=== PATIENT | female | born 1935 | race Caucasian/White ===

== ENCOUNTER 2017-10-08 09:42 | Outpatient (RCR) | payer MEDICARE, SELFPAY ==
[2017-10-08 12:23] LABS: International Normalized Ratio 2.2; Prothrombin Time (Protime)PT. 23.5 SECONDS (11.7-14.9)
== END 2017-10-08 10:00 | disposition home or self-care (01) ==
LOC: MTLAB 09:42
PROVIDERS: Family Provider Family Medicine; PCP Family Medicine; Visit Provider Family Medicine
DX: I26.99 Other pulmonary embolism without acute cor pulmonale (principal)
CPT/HCPCS: 36415; 85610

== ENCOUNTER → 2017-11-06 14:53 | Outpatient (CLI) | payer MEDICARE, SELFPAY ==
--- NOTE | 2017-11-06 14:58 | HPBD_ITS ---
STUDY: DUAL ENERGY X-RAY ABSORPTIOMETRY / DXA REASON FOR EXAM: Female, 82 years old. Early menopause. Loss of height. TECHNIQUE: Bone Mineral Density (BMD) measurements of lumbar spine and bilateral hips were obtained. COMPARISON: None. FINDINGS: Lumbar Spine (L1-L4): g/cm2 (1.083) / T-score (-0.7) / Z-score (1.2) Findings are suggestive of normal bone density with a low fracture risk. Left Femur Total: g/cm2 (0.970) / T-score (-0.3) / Z-score (1.8) Left Femoral Neck: g/cm2 (0.968) / T-score (-0.5) / Z-score (1.7) Right Femur Total: g/cm2 (0.890) / T-score (-0.9) / Z-score (1.1) Right Femoral Neck: g/cm2 (0.846) / T-score (-1.4) / Z-score (0.8) HPBD/Dexa Bone Density Study (HP) IMPRESSION: The patient is considered osteopenic as outlined below according to World [place] Organization (WHO) criteria with a moderate fracture risk. . Reference Information: The T-score is the number of standard deviations above or below the standard which is normal for young adults at their peak bone mineral density. The World Health Organization (WHO) interprets the T-scores as follows: Above -1 Normal bone density Between -1 and -2.5 Osteopenia Equal to / or below -2.5 Osteoporosis As a practical clinical guideline, osteopenia may be graded as follows: Mild -1 through -1.5 Moderate -1.6 through -2.0 Severe -2.1 through -2.4 The Z-score is the number of standard deviations above or below age-matched controls. A Z-score of less than -1.5 would be considered abnormal. References: 1. NIH Osteoporosis and Related Bone Diseases http://www.osteo.org 2. International Society for Clinical Densitometry http://www.iscd.org 3. National Osteoporosis Foundation http://www.nof.org Electronically Signed: Ramiro Barillas MD at 15:27 EST Tel [phone], Service support ,
== END ==
PROVIDERS: Family Provider Family Medicine; PCP Family Medicine; Visit Provider Nurse Practitioner Family
DX: Z79.811 Long term (current) use of aromatase inhibitors (principal)
CPT/HCPCS: 77080

== ENCOUNTER 2017-11-19 09:56 | Outpatient (RCR) | payer MEDICARE, SELFPAY ==
[2017-09-19 11:28] VITALS: BP 159/111; BMI 31.4
[2017-11-19 12:10] LABS: International Normalized Ratio 2.5; Prothrombin Time (Protime)PT. 27.5 SECONDS (11.7-14.9)
== END 2017-11-19 10:00 | disposition home or self-care (01) ==
LOC: MTLAB 09:56
PROVIDERS: Family Provider Family Medicine; PCP Family Medicine; Visit Provider Family Medicine
DX: I26.99 Other pulmonary embolism without acute cor pulmonale (principal)
CPT/HCPCS: 36415; 85610

== ENCOUNTER 2017-12-17 09:43 | Outpatient (RCR) | payer MEDICARE, SELFPAY ==
[2017-12-17 12:18] LABS: International Normalized Ratio 2.2; Prothrombin Time (Protime)PT. 24.9 SECONDS (11.7-14.9)
== END 2017-12-17 10:00 | disposition home or self-care (01) ==
LOC: MTLAB 09:43
PROVIDERS: Family Provider Family Medicine; PCP Family Medicine; Visit Provider Family Medicine
DX: I48.91 Unspecified atrial fibrillation (principal)
CPT/HCPCS: 36415; 85610

== ENCOUNTER 2018-01-17 14:34 | Outpatient (RCR) | payer MEDICARE, SELFPAY ==
[2018-01-17 15:53] LABS: International Normalized Ratio 2.6; Prothrombin Time (Protime)PT. 28.2 SECONDS (11.7-14.9)
== END 2018-01-17 15:00 | disposition home or self-care (01) ==
LOC: MTLAB 14:34
PROVIDERS: Family Provider Family Medicine; PCP Family Medicine; Visit Provider Family Medicine
DX: I48.91 Unspecified atrial fibrillation (principal)
CPT/HCPCS: 36415; 85610

== ENCOUNTER → 2018-02-05 13:41 | Outpatient (CLI) | payer MEDICARE, SELFPAY ==
--- NOTE | 2018-02-05 11:25 | RAD_ITS ---
STUDY: X-RAY CHEST REASON FOR EXAM: Female, 82 years old. Pre-op, bladder surgery. TECHNIQUE: PA and lateral views of the chest. COMPARISON: CT of the chest, November 16, 2015. FINDINGS: The lungs are well-expanded. There is no new infiltrate or mass. There is no demonstrated pleural abnormality. Normal size heart. Normal mediastinum and sandi. Normal visualized pulmonary arteries. There is atherosclerotic calcification of the aortic arch with tortuosity. There are diffuse degenerative changes of the visualized thoracic spine. There is degenerative osteoarthritis of the bilateral shoulders. There is no demonstrated abnormality of the visualized soft tissue structures of the upper abdomen. RAD/Chest PA and Lateral IMPRESSION: No acute cardiopulmonary disease. Electronically Signed: Kurt Alejandre DO at 16:57 EDT Tel [phone], Service support ,
--- NOTE | 2018-02-05 11:35 | EKG12_ITS ---
Test Reason : PRE OP Blood Pressure : / mmHG Vent. Rate : 097 BPM Atrial Rate : 107 BPM P-R Int : 000 ms QRS Dur : 130 ms QT Int : 382 ms P-R-T Axes : 000 028 -26 degrees QTc Int : 485 ms Atrial fibrillation Right bundle branch block T wave abnormality, consider inferior ischemia or digitalis effect Abnormal ECG Confirmed by IJEOMA MCGHEE ([id number]), editorial intern CHANTE ALEJANDRO ([id number]) on 02/18/2018 4:59:12 PM Referred By: Rob Castro Confirmed By:IJEOMA MCGHEE
[2018-02-05 11:37] LABS: Hematocrit 42.1 % (37-47); Hemoglobin 13.4 g/dl (12.0-15.0); Mean Corp Hgb Conc 31.8 g/gl (32-36); Mean Corpuscular Hgb 29.5 pg (27.0-32.0); Mean Corpuscular Volume 92.5 fL (81-99); Mean Platelet Vol. 9.2 fl (6.2-12.0); Platelet Count 238 K/mm3 (150-450); RBC Distribution Width CV 16.7 % (11.6-14.6); RBC Distribution Width SD 56.8 fl (35.1-43.9); Red Blood Count 4.55 M/mm3 (4.2-5.4); White Blood Count 4.8 K/mm3 (4.4-11.0)
[2018-02-05 11:44] LABS: International Normalized Ratio 2.5; Prothrombin Time (Protime)PT. 27.3 SECONDS (11.7-14.9)
[2018-02-05 11:45] LABS: Partial Thromboplast Time 37.4 Seconds (24.1-36.2)
[2018-02-05 11:46] LABS: Scan Indicated on CBC? Y/N NO
[2018-02-05 12:09] LABS: ALB/GLOB Ratio 0.9 RATIO (0.9-2.4); AST(SGOT) 20 U/L (15-37); Alanine Aminotransfer ALT/SGPT 19 U/L (13-56); Albumin, Serum 3.7 g/dL (3.2-5.0); Alkaline Phosphatase 78 U/L (45-117); Anion Gap 7 (5-15); BUN 16 mg/dL (7-18); BUN/Creat Ratio 13.7 RATIO (10-20); Calcium,Total 9.7 mg/dL (8.5-10.1); Chloride 106 mmol/L (98-107); Creatinine, Serum 1.17 mg/dL (0.55-1.02); EST Glomerular Filtration Rate 47 mL/min (>60); Est Glom Filt Rate - Afr Amer 57 mL/min (>60); Globulin 4.1 g/dL (2.2-4.2); Glucose 94 mg/dL (74-106); Potassium 4.2 mmol/L (3.5-5.1); Protein, Total 7.8 g/dL (6.4-8.2); Sodium Level 141 mmol/L (136-145)
== END ==
PROVIDERS: Family Provider Family Medicine; PCP Family Medicine; Visit Provider Obstetrics & Gynecology
DX: Z01.818 Encounter for other preprocedural examination (principal)
CPT/HCPCS: 36415; 71046; 80053; 85027; 85610; 85730; 86850; 86900; 93005

== ENCOUNTER → 2018-02-14 09:47 | Outpatient (CLI) | payer MEDICARE, SELFPAY ==
--- NOTE | 2018-02-14 09:47 | DT_ITS ---
This patient was seen during an EMR downtime February 11, 2018 - February 18, 2018. This patient may have a combination of paper and electronic documentation or all paper documentation. All documentation is viewable within the e-chart portion of [facility] for each patient visit.
[2018-02-19 03:22] LABS: International Normalized Ratio 2.1
== END ==
PROVIDERS: Family Provider Family Medicine; PCP Family Medicine; Visit Provider Family Medicine
DX: I48.91 Unspecified atrial fibrillation (principal)
CPT/HCPCS: 36415; 85610

== ENCOUNTER → 2018-02-28 12:44 | Outpatient (CLI) | payer MEDICARE, SELFPAY ==
--- NOTE | 2018-02-28 12:45 | ECHOD_ITS ---
Reason For Study: A. fib Procedure This was a 2D Doppler, Color Flow transthoracic echocardiogram. Exam performed in department. Left Ventricle Normal LV size. Mild concentric left ventricular hypertrophy. Left ventricular systolic function is normal. The estimated ejection fraction is 60 %. Unable to assess diastolic dysfunction due to arrhythmia. No regional wall motion abnormalities noted. Right Ventricle Normal RV size. Normal systolic function. Atria The left atrium is moderately enlarged. Normal right atrium. Probable patent foramen ovale. Mitral Valve There is mild mitral annular calcification. Mild (1+) eccentric mitral valve insufficiency. Tricuspid Valve Normal tricuspid valve. Mild tricuspid valve insufficiency. Pulmonary artery systolic pressure is 27 mmHg. Pulmonic Valve Normal pulmonic valve. Great Vessels Normal aortic root. The pulmonary artery is normal size. Normal inferior vena cava. Pericardium/Pleural No pericardial effusion. MMode/2D Measurements & Calculations LVIDd: 3.9 cm IVSd: 1.3 cm Ao root diam: 3.4 cm LVIDs: 3.1 cm LVPWd: 1.2 cm LA dimension: 3.8 cm RVDd: 3.2 cm FS: 21.1 % LAV(MOD-bp): 77.4 ml LA A4 area: 25.5 cm2 RA A4 area: 19.8 cm2 LAV(MOD-bp) Indexed: 39.2 ml/m2 LAV(MOD-sp2): 75.6 ml LAV(MOD-sp4): 79.8 ml Doppler Measurements & Calculations MV E max loyd: 113.7 cm/sec Ao V2 max: 110.6 cm/sec LV V1 max: 86.7 cm/sec Ao max P.9 mmHg LV V1 max P.0 mmHg PA V2 max: 94.3 cm/sec TR max loyd: 245.6 cm/sec TR max P.3 mmHg Interpretation Summary Normal LV size. Mild concentric left ventricular hypertrophy. Left ventricular systolic function is normal. The estimated ejection fraction is 60 %. Unable to assess diastolic dysfunction due to arrhythmia. Mild tricuspid valve insufficiency. Mild (1+) eccentric mitral valve insufficiency. Probable patent foramen ovale. Ordering Physician: Trev Matamoros Referring Physician: Silvano Chavez M.D. Performed By: Tori Flores RDCS
== END ==
PROVIDERS: Family Provider Family Medicine; PCP Family Medicine; Visit Provider Internal Medicine Cardiovascular Disease
DX: Z01.810 Encounter for preprocedural cardiovascular examination (principal)
CPT/HCPCS: 93306

== ENCOUNTER → 2018-03-01 06:19 | Outpatient (CLI) | payer MEDICARE, SELFPAY ==
--- NOTE | 2018-03-01 09:10 | STRESSREP_ITS ---
Stress Test Report Pharmacologic myocardial perfusion stress test. 82-year-old lady with history of hypertension coronary artery disease for preoperative stress testing. Stress protocol. Resting EKG demonstrates atrial for ablation with a rate of 92 bpm incomplete right bundle branch block is noted resting blood pressures 162/110 mmHg. 0.4 mg of regadenoson was infused per usual protocol followed by rapid intravenous saline flush injection continuous EKG monitoring was performed. The patient maintained atrial for ablation throughout the recording. The maximum heart rate is 115 bpm which was 82% of maximum predicted heart rate the maximum workload attained was 1 metabolic equivalent. At rest there were nonspecific ST -T wave changes noted with no meet the criteria for abnormal flow reserve. Resting blood pressure is 100 6210 final blood pressure was 152/100. Myocardial perfusion protocol. 11.9 mCi of technetium 99m sestamibi was injected at rest. 0.4 mg regadenoson was infused per usual protocol peak infusion 34.3 mCi of technetium 99m sestamibi was injected stress images were obtained stress and rest images were reconstructed and compared in the short axis vertical long horizontal long axis. Gated images were also obtained Perfusion SPECT analysis: Review of the stress images demonstrate normal uptake of tracer noted in all areas of the myocardium. The resting images similarly demonstrate normal uptake of tracer noted in all areas of the myocardium. No areas of reversibility are noted suggest ischemia. Gated SPECT analysis. The gated ejection fraction of 61%. Conclusion Normal pharmacologic myocardial perfusion stress test. Preserved ejection fraction. Atrial fibrillation noted.
== END ==
PROVIDERS: Family Provider Family Medicine; PCP Family Medicine; Visit Provider Internal Medicine Cardiovascular Disease
DX: Z01.810 Encounter for preprocedural cardiovascular examination (principal); I48.0 Paroxysmal atrial fibrillation
CPT/HCPCS: 78452; 93017; A9500; A4216; J2785

== ENCOUNTER 2018-04-03 06:00 | Day surgery (SDC) | payer MEDICARE, SELFPAY ==
[2018-03-21 11:44] LABS: International Normalized Ratio 2.4; Partial Thromboplast Time 37.5 Seconds (24.1-36.2); Prothrombin Time (Protime)PT. 26.5 SECONDS (11.7-14.9)
[2018-03-21 12:06] LABS: ALB/GLOB Ratio 0.9 RATIO (0.9-2.4); AST(SGOT) 17 U/L (15-37); Alanine Aminotransfer ALT/SGPT 20 U/L (13-56); Albumin, Serum 3.8 g/dL (3.2-5.0); Alkaline Phosphatase 78 U/L (45-117); Anion Gap 6 (5-15); BUN 20 mg/dL (7-18); BUN/Creat Ratio 16.3 RATIO (10-20); Calcium,Total 9.6 mg/dL (8.5-10.1); Chloride 104 mmol/L (98-107); Creatinine, Serum 1.23 mg/dL (0.55-1.02); EST Glomerular Filtration Rate 45 mL/min (>60); Est Glom Filt Rate - Afr Amer 54 mL/min (>60); Globulin 4.3 g/dL (2.2-4.2); Glucose 77 mg/dL (74-106); Potassium 4.1 mmol/L (3.5-5.1); Protein, Total 8.1 g/dL (6.4-8.2); Sodium Level 141 mmol/L (136-145)
[2018-04-03 06:41] LABS: Prothrombin Time Fingerstick 13.8 SEC (11.9-14.4)
[2018-04-03 06:43] VITALS: BP 153/72; PULSE 62; RESP 16; TEMP 36.4; O2SAT 95; BMI 30.7
--- NOTE | 2018-04-03 07:42 | PCM.DC ---
You will use the following diet at home:: No restrictions Your food should be the consistency of: Regular Your liquids should be the consistency of: Regular/Thin Discharge Activity: Return to Normal Activity, May Drive, May not drive while taking narcotic pain medications., May Shower May shower in (days): 0 May resume sexual activity in: 4-6 weeks Call your doctor if your incision/area has: Continuous Slow Oozing, Sudden Increased Bleeding, Increased Pain/ Swelling, Foul Smelling Discharge Call your doctor if you observe: Fever of 101 or Higher, Inability to urinate, Inability to have a bowel movement, Using more than one pad per hour, Shortness of breath, Chest pain, Calf discomfort, Uncontrolled pain Cleanse incision/area with: Soap & Water Allergies/Adverse Reactions: Allergies No Known Allergies Allergy (Verified 03/25/18 14:04) Medications to take at Discharge Atorvastatin Calcium [Lipitor] 10 mg PO QHS 10/11/15 Calcium Carbonate/Vitamin D3 [Calcium 600-Vit D3 400 Caplet] 1 ea PO BID 10/11/15 Multivit-Min/FA/Lycopen/Lutein [Centrum Silver Tablet] 1 ea PO DAILY 10/11/15 Pantoprazole Sodium [Protonix] 40 mg PO DAILY 10/11/15 warfarin 3 mg tablet 3 mg PO MOWEFR 09/19/17 warfarin 4 mg tablet 4 mg PO SUTUTHSA 09/19/17 Anastrozole [Arimidex] 1 mg PO DAILY 90 Days #90 tab 11/13/17 losartan 50 mg tablet 50 mg PO QDAY #90 tab 02/27/18 metoprolol tartrate 25 mg tablet 25 mg PO BID #180 tab 02/27/18 Ibuprofen 600 mg PO 4X/DAY #20 tab 04/03/18 Oxycodone [Oxyir] 5 mg PO Q4H PRN PRN 7 Days #10 tab 04/03/18 The following prescriptions were given: Oxycodone [Oxyir] 5 mg PO Q4H PRN PRN 7 Days #10 tab PRN Reason: Severe Pain (6-06/19) Ibuprofen 600 mg PO 4X/DAY #20 tab Primary Care Physician: Silvano Chavez MD [Primary Care Provider] - Test Results: Test results from this visit will be discussed in further detail at your follow-up appointment, if applicable. Please Follow Up With: Rob Castro MD When: one week Proposed Discharge Date: 04/03/18
--- NOTE | 2018-04-03 07:45 | DCINST_ITS ---
You will use the following diet at home:: No restrictions Your food should be the consistency of: Regular Your liquids should be the consistency of: Regular/Thin Discharge Activity: Return to Normal Activity, May Drive, May not drive while taking narcotic pain medications., May Shower May shower in (days): 0 May resume sexual activity in: 4-6 weeks Call your doctor if your incision/area has: Continuous Slow Oozing, Sudden Increased Bleeding, Increased Pain/ Swelling, Foul Smelling Discharge Call your doctor if you observe: Fever of 101 or Higher, Inability to urinate, Inability to have a bowel movement, Using more than one pad per hour, Shortness of breath, Chest pain, Calf discomfort, Uncontrolled pain Cleanse incision/area with: Soap & Water Allergies/Adverse Reactions: Allergies No Known Allergies Allergy (Verified 03/25/18 14:04) Medications to take at Discharge Atorvastatin Calcium [Lipitor] 10 mg PO QHS 10/11/15 Calcium Carbonate/Vitamin D3 [Calcium 600-Vit D3 400 Caplet] 1 ea PO BID Multivit-Min/FA/Lycopen/Lutein [Centrum Silver Tablet] 1 ea PO DAILY 10/11/15 Pantoprazole Sodium [Protonix] 40 mg PO DAILY 10/11/15 warfarin 3 mg tablet 3 mg PO MOWEFR 09/19/17 warfarin 4 mg tablet 4 mg PO SUTUTHSA 09/19/17 Anastrozole [Arimidex] 1 mg PO DAILY 90 Days #90 tab 11/13/17 losartan 50 mg tablet 50 mg PO QDAY #90 tab 02/27/18 metoprolol tartrate 25 mg tablet 25 mg PO BID #180 tab 02/27/18 Ibuprofen 600 mg PO 4X/DAY #20 tab 04/03/18 Oxycodone [Oxyir] 5 mg PO Q4H PRN PRN 7 Days #10 tab 04/03/18 The following prescriptions were given: Oxycodone [Oxyir] 5 mg PO Q4H PRN PRN 7 Days #10 tab PRN Reason: Severe Pain (6-06/19) Ibuprofen 600 mg PO 4X/DAY #20 tab Primary Care Physician: Silvano Chavez MD [Primary Care Provider] - Test Results: Test results from this visit will be discussed in further detail at your follow- up appointment, if applicable. Please Follow Up With: Rob Castro MD When: one week Proposed Discharge Date: 04/03/18
[2018-04-03 08:22] VITALS: BP 153/72; BP 178/97; PULSE 84; RESP 18; TEMP 36.3; O2SAT 95
[2018-04-03 08:30] VITALS: BP 145/95; BP 153/72; PULSE 94; RESP 18; O2SAT 97
--- NOTE | 2018-04-03 08:31 | OP.PCM_ITS ---
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 INR was checked morning of surgery and found to be 1.2. She was given two grams of Cefotetan intravenously prior to the procedure. General anesthesia was introduced without complication. SHe was then prepped and draped in the dorsal lithotomy position. A haines catheter was then placed. Allis clamps were then placed on the vaginal mucosa in the midline below the level of the urethra. One was placed 1 cm proximal to the urethral meatus and the second 2 centimeters above that. An incision was then made in the vaginal mucosa between the Allis clamps. The vaginal mucosa was then dissected towards the obturator membrane in a 45 degree angle to the midline horizontal to the plain of the pelvis. The membrane was then pierced on the right with the scissors and the trocar guide placed in this defect. The right side of the sling was then placed with exit being 2 centimeters above the level of the urethral meatus 2 centimeters lateral to the crural fold. In a similar fashion the sling was placed on the left side. The tension of the sling was adjusted and the sling covers removed on each side. The distal portions of the sling were then trimmed at the level of the skin. The vaginal incision was the reapproximated with 4-0 vicryl suture. The haines catheter was removed. Sponge, lap, needle and instrument counts were correct. SHe was reversed from anesthesia and taken to the recovery room in stable condition. Grafts/Implants Used: Delara midurethral sling - Complications none - Admit VTE Documentation VTE Present on Admission: No VTE Mechan Device Prophylaxis: SCD's VTE Pharm Prophylaxis ordered?: No
[2018-04-03 08:45] VITALS: BP 159/102; BP 160/90; PULSE 76; RESP 18; TEMP 36.4; O2SAT 93
[2018-04-03 11:27] VITALS: BP 154/83; BP 160/90; PULSE 82; RESP 16; TEMP 36.2; O2SAT 95
== END 2018-04-03 11:27 | disposition home or self-care (01) ==
LOC: SDC 06:01 → AC 06:30
PROVIDERS: Family Provider Family Medicine; PCP Family Medicine; Visit Provider Obstetrics & Gynecology
PROC: 0TJB8ZZ Inspection of Bladder, Via Natural or Artificial Opening Endoscopic (ICD-10-PCS; CPT 57288; principal; 2018-04-03 07:20)
DX: N39.3 Stress incontinence (female) (male) (principal); N36.41 Hypermobility of urethra; Z85.3 Personal history of malignant neoplasm of breast; Z92.3 Personal history of irradiation; Z86.718 Personal history of other venous thrombosis and embolism; E78.00 Pure hypercholesterolemia, unspecified; K21.9 Gastro-esophageal reflux disease without esophagitis; Z79.01 Long term (current) use of anticoagulants; Z79.899 Other long term (current) drug therapy; I48.91 Unspecified atrial fibrillation; I45.10 Unspecified right bundle-branch block; I10 Essential (primary) hypertension
CPT/HCPCS: 57288; 36415; 36416; 80053; 85610; 85730; 86850; 86900; J7120; C1771; J2405

== ENCOUNTER 2018-04-25 14:13 | Outpatient (RCR) | payer MEDICARE, SELFPAY ==
[2018-04-25 16:07] LABS: International Normalized Ratio 2.3; Prothrombin Time (Protime)PT. 25.4 SECONDS (11.7-14.9)
== END 2018-04-25 16:00 | disposition home or self-care (01) ==
LOC: MTLAB 14:13
PROVIDERS: Family Provider Family Medicine; PCP Family Medicine; Visit Provider Family Medicine
DX: I48.91 Unspecified atrial fibrillation (principal)
CPT/HCPCS: 36415; 85610

== ENCOUNTER 2018-05-27 10:03 | Outpatient (RCR) | payer MEDICARE, SELFPAY ==
[2018-05-27 12:18] LABS: International Normalized Ratio 2.3; Prothrombin Time (Protime)PT. 25.8 SECONDS (11.7-14.9)
== END 2018-05-27 11:00 | disposition home or self-care (01) ==
LOC: MTLAB 10:03
PROVIDERS: Family Provider Family Medicine; PCP Family Medicine; Visit Provider Family Medicine
DX: I48.91 Unspecified atrial fibrillation (principal)
CPT/HCPCS: 36415; 85610

== ENCOUNTER → 2018-06-24 09:17 | Outpatient (CLI) | payer MEDICARE, SELFPAY ==
[2018-06-24 12:25] LABS: Absolute Lymphocyte Count 0.76 X10^3/ul (0.83-4.51); Absolute Neutrophil Count 3.1 X10^3/uL (2.0-7.7); Basophil# 0.03 X10^3/uL; Basophil% 0.7 % (0-1); Eosinophil# 0.13 X10^3/uL; Eosinophils% 2.9 % (0-5); Hematocrit 42.6 % (37-47); Hemoglobin 13.7 g/dl (12.0-15.0); Lymphocyte # 0.76 X10^3/ul (4.0); Lymphocyte % 17.1 % (19-41); Mean Corp Hgb Conc 32.2 g/gl (32-36); Mean Corpuscular Hgb 30.4 pg (27.0-32.0); Mean Corpuscular Volume 94.7 fL (81-99); Mean Platelet Vol. 10.4 fl (6.2-12.0); Monocyte# 0.48 X10^3/uL; Monocyte% 10.8 % (0-10); Neutrophil # 3.05 X10^3/uL (2.7-7.7); Neutrophil % 68.5 % (47-70); POSITIVE COUNT NO; POSITIVE DIFFERENTIAL NO; POSITIVE MORPHOLOGY NO; Platelet Count 218 K/mm3 (150-450); RBC Distribution Width CV 16.1 % (11.6-14.6); RBC Distribution Width SD 54.2 fl (35.1-43.9); White Blood Count 4.5 K/mm3 (4.4-11.0)
[2018-06-24 12:45] LABS: International Normalized Ratio 2.8; Prothrombin Time (Protime)PT. 29.8 SECONDS (11.7-14.9)
[2018-06-24 12:50] LABS: Anion Gap 8 (5-15); BUN 21 mg/dL (7-18); BUN/Creat Ratio 19.4 RATIO (10-20); Calcium,Total 9.4 mg/dL (8.5-10.1); Chloride 105 mmol/L (98-107); Cholesterol 141 mg/dL (200); Creatinine, Serum 1.08 mg/dL (0.55-1.02); EST Glomerular Filtration Rate 52 mL/min (>60); Est Glom Filt Rate - Afr Amer 63 mL/min (>60); Glucose 84 mg/dL (74-106); High Density Lipoprotein 65 mg/dL; Potassium 4.2 mmol/L (3.5-5.1); Sodium Level 142 mmol/L (136-145); Triglycerides 100 mg/dL; Very Low Density Lipoprotein 20 mg/dL (5-40)
== END ==
PROVIDERS: Family Provider Family Medicine; PCP Family Medicine; Referring Provider Family Medicine; Visit Provider Family Medicine
DX: I10 Essential (primary) hypertension (principal); E78.00 Pure hypercholesterolemia, unspecified; I48.91 Unspecified atrial fibrillation
CPT/HCPCS: 36415; 80048; 80061; 85025; 85610

== ENCOUNTER 2018-07-25 10:09 | Outpatient (RCR) | payer MEDICARE, SELFPAY ==
[2018-07-25 12:24] LABS: International Normalized Ratio 2.5; Prothrombin Time (Protime)PT. 27.1 SECONDS (11.7-14.9)
== END 2018-07-25 11:00 | disposition home or self-care (01) ==
LOC: MTLAB 10:09
PROVIDERS: Family Provider Family Medicine; PCP Family Medicine; Referring Provider Family Medicine; Visit Provider Family Medicine
DX: I48.91 Unspecified atrial fibrillation (principal)
CPT/HCPCS: 36415; 85610

== ENCOUNTER 2018-08-26 11:02 | Outpatient (RCR) | payer MEDICARE, SELFPAY ==
[2018-08-23 10:02] VITALS: BMI 31.4
[2018-08-26 12:18] LABS: International Normalized Ratio 2.7; Prothrombin Time (Protime)PT. 28.6 SECONDS (11.7-14.9)
== END 2018-08-26 12:00 | disposition home or self-care (01) ==
LOC: MTLAB 11:02
PROVIDERS: Family Provider Family Medicine; PCP Family Medicine; Referring Provider Family Medicine; Visit Provider Family Medicine
DX: I48.91 Unspecified atrial fibrillation (principal)
CPT/HCPCS: 36415; 85610

== ENCOUNTER 2018-09-26 10:11 | Outpatient (RCR) | payer MEDICARE, SELFPAY ==
[2018-08-23 10:02] VITALS: BMI 31.4
[2018-09-26 12:17] LABS: International Normalized Ratio 2.6; Prothrombin Time (Protime)PT. 27.6 SECONDS (11.7-14.9)
== END 2018-09-26 12:00 | disposition home or self-care (01) ==
LOC: MTLAB 10:11
PROVIDERS: Family Provider Family Medicine; PCP Family Medicine; Referring Provider Family Medicine; Visit Provider Family Medicine
DX: I48.91 Unspecified atrial fibrillation (principal)
CPT/HCPCS: 36415; 85610

== ENCOUNTER → 2018-10-08 08:14 | Outpatient (CLI) | payer MEDICARE, SELFPAY ==
[2018-08-23 10:02] VITALS: BMI 31.4
--- NOTE | 2018-10-08 08:17 | BI_ITS ---
MAMMOGRAPHY - BILATERAL SCREENING REASON FOR EXAM: Female, 83 years old. Routine annual screening examination. PERTINENT HISTORY: Personal history of breast cancer. Prior left lumpectomy and radiation treatment. Sister with breast cancer. Mother with breast cancer. TECHNIQUE: Digital bilateral breast kelly (3D mammographic acquisition) in the CC and MLO projections. 2-D mediolateral oblique (MLO) and craniocaudad (CC) views of both breasts were obtained. CAD: Full Field Digital Mammography with Computer Added Detection was performed. COMPARISON: Comparison is made with prior study dated September 11, 2017 and September 07, 2016. FINDINGS: Breast Composition: The breasts are heterogeneously dense, which may obscure small masses. The patient is status post lumpectomy in the deep midportion of the left breast with resultant postoperative distortion. The previously seen nodular density presently measures 2.9 cm by 2.5 cm. A tissue clip marker is seen at the biopsy site. Stable deformity of the left breast secondary to surgical intervention. Stable thickening of the skin. No other significant abnormalities are identified. BI/SCREENING MAMM (CAD), BILAT IMPRESSION: Postoperative deformity of the left breast. The previously seen nodular density at the lumpectomy site measures 2.95 x 2.5 cm. A tissue clip marker is seen at the biopsy site. ASSESSMENT CATEGORY: BIRADS Category 2: Benign. A letter regarding these results will be sent to the patient by the facility within 30 days. Approximately 10% of breast cancers are not detected by mammography. A normal mammogram should not delay biopsy of a clinically suspicious abnormality. [id number] Electronically Signed: Ramiro Barillas MD at 13:08 EST , Service support ,
== END ==
PROVIDERS: Family Provider Family Medicine; PCP Family Medicine; Referring Provider Family Medicine; Visit Provider Family Medicine
DX: Z12.31 Encounter for screening mammogram for malignant neoplasm of breast (principal)
CPT/HCPCS: 77063; 77067

== ENCOUNTER 2018-10-31 10:54 | Outpatient (RCR) | payer MEDICARE, SELFPAY ==
[2018-08-23 10:02] VITALS: BMI 31.4
[2018-10-31 12:20] LABS: International Normalized Ratio 2.4
== END 2018-11-07 15:10 | disposition home or self-care (01) ==
LOC: MTLAB 10:54
PROVIDERS: Family Provider Family Medicine; PCP Family Medicine; Referring Provider Family Medicine; Visit Provider Family Medicine
DX: I48.91 Unspecified atrial fibrillation (principal)
CPT/HCPCS: 36415; 85610

== ENCOUNTER → 2018-11-14 12:01 | Outpatient (CLI) | payer MEDICARE, SELFPAY ==
[2018-08-23 10:02] VITALS: BMI 31.4
[2018-11-14 14:52] LABS: International Normalized Ratio 2.3; Prothrombin Time (Protime)PT. 25.7 SECONDS (11.7-14.9)
== END ==
PROVIDERS: Family Provider Family Medicine; PCP Family Medicine; Referring Provider Family Medicine; Visit Provider Family Medicine
DX: I48.91 Unspecified atrial fibrillation (principal)
CPT/HCPCS: 36415; 85610

== ENCOUNTER → 2018-11-29 09:56 | Outpatient (CLI) | payer MEDICARE, SELFPAY ==
[2018-08-23 10:02] VITALS: BMI 31.4
[2018-11-29 12:48] LABS: International Normalized Ratio 2.8; Prothrombin Time (Protime)PT. 29.3 SECONDS (11.7-14.9)
== END ==
PROVIDERS: Family Provider Family Medicine; PCP Family Medicine; Referring Provider Family Medicine; Visit Provider Family Medicine
DX: I48.91 Unspecified atrial fibrillation (principal)
CPT/HCPCS: 36415; 85610

== ENCOUNTER 2018-12-30 09:38 | Outpatient (RCR) | payer MEDICARE, SELFPAY ==
[2018-08-23 10:02] VITALS: BMI 31.4
[2018-12-30 12:30] LABS: International Normalized Ratio 3.4; Prothrombin Time (Protime)PT. 34.8 SECONDS (11.7-14.9)
== END 2019-01-07 23:59 ==
LOC: MFPLAB 09:38
PROVIDERS: Family Medicine; Family Provider Family Medicine; PCP Family Medicine; Visit Provider Family Medicine
DX: I48.91 Unspecified atrial fibrillation (principal)
CPT/HCPCS: 36415; 85610

== ENCOUNTER → 2019-01-20 | Outpatient (CLI) | payer MEDICARE, SELFPAY ==
[2018-08-23 10:02] VITALS: BMI 31.4
[2019-01-20 12:34] LABS: International Normalized Ratio 3.1; Prothrombin Time (Protime)PT. 32.1 SECONDS (11.7-14.9)
== END | disposition home or self-care (01) ==
LOC: MFPLAB 09:53
PROVIDERS: Family Provider Family Medicine; PCP Family Medicine; Visit Provider Family Medicine
DX: I48.91 Unspecified atrial fibrillation (principal)
CPT/HCPCS: 36415; 85610

== ENCOUNTER 2019-03-03 10:29 | Outpatient (RCR) | payer MEDICARE, SELFPAY ==
[2018-08-23 10:02] VITALS: BMI 31.4
[2019-02-10 12:40] LABS: International Normalized Ratio 3.1; Prothrombin Time (Protime)PT. 32.4 SECONDS (11.7-14.9)
[2019-03-03 12:50] LABS: International Normalized Ratio 2.5; Prothrombin Time (Protime)PT. 26.7 SECONDS (11.7-14.9)
== END 2019-03-09 23:59 ==
LOC: MFPLAB 10:29
PROVIDERS: Family Provider Family Medicine; PCP Family Medicine; Referring Provider Family Medicine; Visit Provider Family Medicine
DX: I48.91 Unspecified atrial fibrillation (principal)
CPT/HCPCS: 36415; 85610

== ENCOUNTER → 2019-03-11 | Outpatient (CLI) | payer MEDICARE, SELFPAY ==
[2018-08-23 10:02] VITALS: BMI 31.4
[2019-03-11 10:44] LABS: Anion Gap 7 (5-15); BUN 19 mg/dL (7-18); BUN/Creat Ratio 15.7 RATIO (10-20); CPK Total, Creatine Kinase 42 U/L (26-192); Calcium,Total 9.6 mg/dL (8.5-10.1); Chloride 106 mmol/L (98-107); Cholesterol 135 mg/dL (200); Creatinine, Serum 1.21 mg/dL (0.55-1.02); EST Glomerular Filtration Rate 45 mL/min (>60); Est Glom Filt Rate - Afr Amer 55 mL/min (>60); Glucose 91 mg/dL (74-106); High Density Lipoprotein 65 mg/dL; Potassium 4.2 mmol/L (3.5-5.1); Sodium Level 142 mmol/L (136-145); Thyroid Stim Hormone (TSH) 1.05 uIU/mL (0.358-3.74); Triglycerides 109 mg/dL; Very Low Density Lipoprotein 22 mg/dL (5-40); Vitamin D,25 Hydroxy 43.1 ng/mL (29.95-100.01)
[2019-03-11 10:51] LABS: Absolute Lymphocyte Count 0.87 X10^3/ul (0.83-4.51); Absolute Neutrophil Count 2.6 X10^3/uL (2.0-7.7); Basophil# 0.04 X10^3/uL; Eosinophil# 0.16 X10^3/uL; Eosinophils% 3.8 % (0-5); Erythrocyte Sedimentation Rate 6 mm/hr (0-30); Hematocrit 40.6 % (37-47); Hemoglobin 13.1 g/dl (12.0-15.0); Lymphocyte # 0.87 X10^3/ul (4.0); Lymphocyte % 20.8 % (19-41); Mean Corp Hgb Conc 32.3 g/gl (32-36); Mean Corpuscular Hgb 30.2 pg (27.0-32.0); Mean Corpuscular Volume 93.5 fL (81-99); Monocyte# 0.48 X10^3/uL; Monocyte% 11.5 % (0-10); Neutrophil # 2.63 X10^3/uL (2.7-7.7); Neutrophil % 62.7 % (47-70); Platelet Count 225 K/mm3 (150-450); RBC Distribution Width CV 15.3 % (11.6-14.6); RBC Distribution Width SD 52.2 fl (35.1-43.9); Red Blood Count 4.34 M/mm3 (4.2-5.4); White Blood Count 4.2 K/mm3 (4.4-11.0)
[2019-03-11 10:52] LABS: POSITIVE COUNT NO; POSITIVE DIFFERENTIAL NO; POSITIVE MORPHOLOGY NO
== END | disposition home or self-care (01) ==
LOC: MTLAB 08:41
PROVIDERS: Family Provider Family Medicine; PCP Family Medicine; Referring Provider Family Medicine; Visit Provider Family Medicine
DX: I10 Essential (primary) hypertension (principal); R29.898 Other symptoms and signs involving the musculoskeletal system; M79.10 Myalgia, unspecified site; E78.00 Pure hypercholesterolemia, unspecified; M85.80 Other specified disorders of bone density and structure, unspecified site
CPT/HCPCS: 36415; 80048; 80061; 82306; 82550; 84443; 85025; 85652

== ENCOUNTER 2019-03-31 09:17 | Outpatient (RCR) | payer MEDICARE, SELFPAY ==
[2018-08-23 10:02] VITALS: BMI 31.4
[2019-03-31 09:54] LABS: International Normalized Ratio 2.3; Prothrombin Time (Protime)PT. 24.9 SECONDS (11.7-14.9)
== END 2019-04-09 23:59 ==
LOC: MFPLAB 09:17
PROVIDERS: Family Provider Family Medicine; PCP Family Medicine; Referring Provider Family Medicine; Visit Provider Family Medicine
DX: I48.91 Unspecified atrial fibrillation (principal)
CPT/HCPCS: 36415; 85610

== ENCOUNTER 2019-05-02 08:58 | Outpatient (RCR) | payer MEDICARE, SELFPAY ==
[2018-08-23 10:02] VITALS: BMI 31.4
[2019-05-02 10:45] LABS: International Normalized Ratio 1.8
== END 2019-05-10 23:59 ==
LOC: MFPLAB 08:58
PROVIDERS: Family Provider Family Medicine; PCP Family Medicine; Referring Provider Family Medicine; Visit Provider Family Medicine
DX: I48.91 Unspecified atrial fibrillation (principal)
CPT/HCPCS: 36415; 85610

== ENCOUNTER 2019-05-30 10:16 | Outpatient (RCR) | payer MEDICARE, SELFPAY ==
[2018-08-23 10:02] VITALS: BMI 31.4
[2019-05-30 13:03] LABS: Prothrombin Time (Protime)PT. 22.6 SECONDS (11.7-14.9)
== END 2019-06-09 23:59 ==
LOC: MFPLAB 10:16
PROVIDERS: Family Provider Family Medicine; PCP Family Medicine; Referring Provider Family Medicine; Visit Provider Family Medicine
DX: I48.91 Unspecified atrial fibrillation (principal)
CPT/HCPCS: 36415; 85610

== ENCOUNTER 2019-06-25 09:52 | Outpatient (RCR) | payer MEDICARE, SELFPAY ==
[2018-08-23 10:02] VITALS: BMI 31.4
[2019-06-25 12:41] LABS: Absolute Lymphocyte Count 0.85 X10^3/uL (0.83-4.51); Absolute Neutrophil Count 2.8 X10^3/uL (2.0-7.7); Basophil# 0.06 X10^3/uL; Basophil% 1.3 % (0-1); Eosinophil# 0.15 X10^3/uL; Eosinophils% 3.3 % (0-5); Hematocrit 41.7 % (37-47); Hemoglobin 13.3 g/dL (12.0-15.0); Lymphocyte # 0.85 X10^3/ul (4.0); Lymphocyte % 18.9 % (19-41); Mean Corp Hgb Conc 31.9 g/dL (32-36); Mean Corpuscular Hgb 29.6 pg (27.0-32.0); Mean Corpuscular Volume 92.7 fL (81-99); Monocyte% 13.4 % (0-10); NRBC Flagged by Analyzer 0 % (0-5); Neutrophil # 2.82 X10^3/uL (2.7-7.7); Neutrophil % 62.9 % (47-70); Platelet Count 216 K/mm3 (150-450); RBC Distribution Width CV 15.9 % (11.6-14.6); RBC Distribution Width SD 53.6 fl (35.1-43.9); White Blood Count 4.5 K/mm3 (4.4-11.0)
[2019-06-25 13:07] LABS: International Normalized Ratio 1.8; Prothrombin Time (Protime)PT. 21.1 SECONDS (11.7-14.9)
[2019-06-25 14:56] LABS: ALB/GLOB Ratio 0.8 RATIO (0.9-2.4); AST(SGOT) 19 U/L (15-37); Alanine Aminotransfer ALT/SGPT 20 U/L (13-56); Albumin, Serum 3.6 g/dL (3.2-5.0); Alkaline Phosphatase 78 U/L (45-117); Anion Gap 7 (5-15); BUN 19 mg/dL (7-18); BUN/Creat Ratio 15.6 RATIO (10-20); Calcium,Total 9.5 mg/dL (8.5-10.1); Chloride 103 mmol/L (98-107); Cholesterol 170 mg/dL (200); Creatinine, Serum 1.22 mg/dL (0.55-1.02); EST Glomerular Filtration Rate 45 mL/min (>60); Est Glom Filt Rate - Afr Amer 54 mL/min (>60); Globulin 4.3 g/dL (2.2-4.2); Glucose 89 mg/dL (74-106); High Density Lipoprotein 66 mg/dL; Potassium 4.3 mmol/L (3.5-5.1); Protein, Total 7.9 g/dL (6.4-8.2); Sodium Level 139 mmol/L (136-145); Triglycerides 81 mg/dL; Very Low Density Lipoprotein 16 mg/dL (5-40)
== END 2019-06-25 18:00 | disposition home or self-care (01) ==
LOC: MTLAB 09:52
PROVIDERS: Family Provider Family Medicine; PCP Family Medicine; Referring Provider Family Medicine; Visit Provider Family Medicine
DX: I48.91 Unspecified atrial fibrillation (principal); E78.00 Pure hypercholesterolemia, unspecified; I10 Essential (primary) hypertension
CPT/HCPCS: 36415; 80053; 80061; 85025; 85610

== ENCOUNTER 2019-07-25 08:40 | Outpatient (RCR) | payer MEDICARE, SELFPAY ==
[2018-08-23 10:02] VITALS: BMI 31.4
[2019-07-11 12:38] LABS: Erythrocyte Sedimentation Rate 9 mm/hr (0-30)
[2019-07-11 12:50] LABS: International Normalized Ratio 2.1; Prothrombin Time (Protime)PT. 23.3 SECONDS (11.7-14.9)
[2019-07-13 09:13] LABS: ANTINUCLEAR ANTIBODIES DIRECT Positive (Negative)
[2019-07-17 16:08] LABS: ASO Titer 43.2 IU/mL (0.0-200.0); Anti-Sarcolema Negative (Neg:<1:20); Sedimentation Rate 8 mm/hr (0-40)
[2019-07-25 10:19] LABS: International Normalized Ratio 1.9; Prothrombin Time (Protime)PT. 22.1 SECONDS (11.7-14.9)
== END 2019-07-25 18:00 | disposition home or self-care (01) ==
LOC: MTLAB 08:40
PROVIDERS: Family Provider Family Medicine; PCP Family Medicine; Referring Provider Family Medicine; Visit Provider Family Medicine
DX: I48.91 Unspecified atrial fibrillation (principal); E78.00 Pure hypercholesterolemia, unspecified; I10 Essential (primary) hypertension
CPT/HCPCS: 36415; 85610; 85652; 86038; 86060; 86140; 86256; 86332

== ENCOUNTER 2019-09-01 09:45 | Outpatient (RCR) | payer MEDICARE, SELFPAY ==
[2018-08-23 10:02] VITALS: BMI 31.4
[2019-08-18 12:24] LABS: International Normalized Ratio 2.1; Prothrombin Time (Protime)PT. 23.6 SECONDS (11.7-14.9)
[2019-09-01 13:06] LABS: International Normalized Ratio 2.4; Prothrombin Time (Protime)PT. 26.3 SECONDS (11.7-14.9)
== END 2019-09-01 18:00 | disposition home or self-care (01) ==
LOC: MTLAB 09:45
PROVIDERS: Family Provider Family Medicine; PCP Family Medicine; Referring Provider Family Medicine; Visit Provider Family Medicine
DX: I48.91 Unspecified atrial fibrillation (principal); Z79.01 Long term (current) use of anticoagulants
CPT/HCPCS: 36415; 85610

== ENCOUNTER 2019-09-26 09:12 | Outpatient (RCR) | payer MEDICARE, SELFPAY ==
[2019-08-26 08:06] VITALS: BMI 30.7
[2019-09-26 10:20] LABS: International Normalized Ratio 2.2; Prothrombin Time (Protime)PT. 24.4 SECONDS (11.7-14.9)
== END 2019-09-26 18:00 | disposition home or self-care (01) ==
LOC: MTLAB 09:12
PROVIDERS: Family Provider Family Medicine; PCP Family Medicine; Referring Provider Family Medicine; Visit Provider Family Medicine
DX: I48.91 Unspecified atrial fibrillation (principal); Z79.01 Long term (current) use of anticoagulants
CPT/HCPCS: 36415; 85610

== ENCOUNTER → 2019-10-02 10:00 | Outpatient (CLI) | payer MEDICARE, SELFPAY ==
[2019-08-26 08:06] VITALS: BMI 30.7
--- NOTE | 2019-10-02 10:25 | RAD_ITS ---
STUDY: X-RAY - PELVIS REASON FOR EXAM: Female, 84 years old. INFLAMMATORY POLYARTHROPATHY -- ATTENTION TO HIPS TECHNIQUE: One view of the pelvis was obtained. COMPARISON: None. FINDINGS: There is a non-specific bowel gas pattern. Normal visualized soft tissue structures. Degenerative lumbar changes. Normal bilateral iliac wings, sacroiliac joints and visualized sacrum. Normal visualized bilateral superior and inferior pubic rami. There are degenerative changes of the pubic symphysis with articular narrowing and sclerosis. Normal ischial tuberosities. Mild bilateral hip osteoarthritis. No erosive lesions are seen. RAD/Pelvis 1 or 2 Views IMPRESSION: Mild bilateral hip osteoarthritis. No erosive lesions are seen. Electronically Signed: Tye Roldan MD at 0:42 EST Tel , Service support ,
[2019-10-02 11:07] LABS: EXAGEN MAILED SPECIMEN
[2019-10-02 12:28] LABS: Erythrocyte Sedimentation Rate 13 mm/hr (0-30)
[2019-10-02 12:30] LABS: Absolute Neutrophil Count 4.6 X10^3/uL (2.0-7.7); Basophil# 0.05 X10^3/uL; Basophil% 0.8 % (0-1); Eosinophil# 0.17 X10^3/uL; Eosinophils% 2.7 % (0-5); Lymphocyte % 12.8 % (19-41); Mean Corp Hgb Conc 31.7 g/dL (32-36); Mean Corpuscular Hgb 29.7 pg (27.0-32.0); Mean Corpuscular Volume 93.8 fL (81-99); Mean Platelet Vol. 9.5 fl (6.2-12.0); Monocyte# 0.58 X10^3/uL; Monocyte% 9.3 % (0-10); NRBC Flagged by Analyzer 0 % (0-5); Neutrophil # 4.61 X10^3/uL (2.7-7.7); Neutrophil % 73.9 % (47-70); Platelet Count 249 K/mm3 (150-450); RBC Distribution Width CV 14.9 % (11.6-14.6); RBC Distribution Width SD 51.7 fl (35.1-43.9); Red Blood Count 4.37 M/mm3 (4.2-5.4); White Blood Count 6.2 K/mm3 (4.4-11.0)
[2019-10-02 13:01] LABS: ALB/GLOB Ratio 0.8 RATIO (0.9-2.4); AST(SGOT) 20 U/L (15-37); Alanine Aminotransfer ALT/SGPT 22 U/L (13-56); Albumin, Serum 3.4 g/dL (3.2-5.0); Alkaline Phosphatase 92 U/L (45-117); Anion Gap 3 (5-15); BUN 20 mg/dL (7-18); BUN/Creat Ratio 17.1 RATIO (10-20); Calcium,Total 9.5 mg/dL (8.5-10.1); Chloride 105 mmol/L (98-107); Creatinine, Serum 1.17 mg/dL (0.55-1.02); EST Glomerular Filtration Rate 47 mL/min (>60); Est Glom Filt Rate - Afr Amer 57 mL/min (>60); Globulin 4.3 g/dL (2.2-4.2); Glucose 90 mg/dL (74-106); Potassium 4.2 mmol/L (3.5-5.1); Protein, Total 7.7 g/dL (6.4-8.2); Sodium Level 138 mmol/L (136-145)
[2019-10-02 13:41] LABS: Hepatitis B Surface Antibody Non-Reactive; Hepatitis B Surface Antigen Non-Reactive (Nonreactive); Hepatitis C Antibody Non-Reactive (Nonreactive)
[2019-10-02 14:13] LABS: Color, Urine Yellow (Yellow); Glucose, Dipstick Normal (Normal); Ketone-Dipstick 5 mg/dl (Negative); Leukocyte Esterase-Dipstick 100 /ul (Negative); Nitrite-Dipstick Positive (Negative); Occult Blood-Urine 25 /ul (Negative); Protein-Dipstick Negative (Negative); Specific Gravity, Urine 1.015 (1.002-1.030); Urine Bilirubin Dipstick Negative (Negative); Urine Clarity Cloudy (Clear); Urine Urobilinogen Normal (Normal)
[2019-10-02 14:25] LABS: Protein, Urine (Random) 22.2 mg/dL (<11.9); Protein:Creat Ratio 173 mg/g CRE (0-200)
[2019-10-03 09:32] LABS: Hepatitis B Core AB IgM Negative (Negative)
== END ==
PROVIDERS: PCP Family Medicine; Referring Provider Internal Medicine Rheumatology; Visit Provider Internal Medicine Rheumatology
DX: M06.4 Inflammatory polyarthropathy (principal); R76.8 Other specified abnormal immunological findings in serum; M19.041 Primary osteoarthritis, right hand; M19.042 Primary osteoarthritis, left hand; K21.9 Gastro-esophageal reflux disease without esophagitis; I48.91 Unspecified atrial fibrillation; Z86.711 Personal history of pulmonary embolism; Z86.718 Personal history of other venous thrombosis and embolism; Z85.3 Personal history of malignant neoplasm of breast; Z86.73 Personal history of transient ischemic attack (TIA), and cerebral infarction without residual deficits
CPT/HCPCS: 36415; 72170; 80053; 81002; 82570; 84156; 85025; 85652; 86140; 86705; 86706; 86803; 87340

== ENCOUNTER → 2019-10-13 10:33 | Outpatient (CLI) | payer MEDICARE, SELFPAY ==
[2019-08-26 08:06] VITALS: BMI 30.7
--- NOTE | 2019-10-13 10:35 | BI_ITS ---
MAMMOGRAPHY - BILATERAL SCREENING REASON FOR EXAM: Female, 84 years old. Routine annual screening examination. PERTINENT HISTORY: Personal history of breast cancer. Prior left lumpectomy and radiation treatment. Sr. with breast cancer. Mother with breast cancer. TECHNIQUE: Digital bilateral breast susu (3D mammographic acquisition) in the CC and MLO projections. 2-D mediolateral oblique (MLO) and craniocaudad (CC) views of both breasts were obtained. CAD: Full Field Digital Mammography with Computer Added Detection was performed. COMPARISON: Comparison is made with prior examination dated October 08, 2018 and generally 2017. FINDINGS: Breast Composition: The breasts are heterogeneously dense, which may obscure small masses. The patient is status post left lumpectomy with resultant deformity of the left breast. Postoperative architectural distortion. Persistent density at the operative site presently measuring 2.4 cm x 2.3 cm. This has decreased in size. A tissue clip marker is also seen at the biopsy site. Stable skin thickening of the left breast. No other significant abnormalities are identified. There has been no significant change since the prior study. BI/SCREEN MAMM (CAD) W/SUSU BILAT IMPRESSION: Stable bilateral screening mammogram. Yearly follow-up mammogram recommended. (A) ASSESSMENT CATEGORY: BIRADS Category 2: Benign. A letter regarding these results will be sent to the patient by the facility within 30 days. Approximately 10% of breast cancers are not detected by mammography. A normal mammogram should not delay biopsy of a clinically suspicious abnormality. [id number] Electronically Signed: Ramiro Barillas, at 12:04 EST , Service support ,
== END ==
PROVIDERS: PCP Family Medicine; Referring Provider Family Medicine; Visit Provider Family Medicine
DX: Z12.31 Encounter for screening mammogram for malignant neoplasm of breast (principal); Z85.3 Personal history of malignant neoplasm of breast
CPT/HCPCS: 77063; 77067

== ENCOUNTER 2019-10-24 09:00 | Outpatient (RCR) | payer MEDICARE, SELFPAY ==
[2019-08-26 08:06] VITALS: BMI 30.7
[2019-10-24 10:20] LABS: International Normalized Ratio 2.2
== END 2019-10-24 18:00 | disposition home or self-care (01) ==
LOC: MTLAB 09:00
PROVIDERS: Family Provider Family Medicine; PCP Family Medicine; Referring Provider Family Medicine; Visit Provider Family Medicine
DX: Z79.01 Long term (current) use of anticoagulants (principal)
CPT/HCPCS: 36415; 85610

== ENCOUNTER 2019-11-24 09:13 | Outpatient (RCR) | payer MEDICARE, SELFPAY ==
[2019-08-26 08:06] VITALS: BMI 30.7
[2019-11-24 12:53] LABS: International Normalized Ratio 2.2
== END 2019-11-24 18:00 | disposition home or self-care (01) ==
LOC: MTLAB 09:13
PROVIDERS: Family Provider Family Medicine; PCP Family Medicine; Referring Provider Family Medicine; Visit Provider Family Medicine
DX: I48.91 Unspecified atrial fibrillation (principal); Z79.01 Long term (current) use of anticoagulants
CPT/HCPCS: 36415; 85610

== ENCOUNTER 2019-12-26 09:21 | Outpatient (RCR) | payer MEDICARE, SELFPAY ==
[2019-08-26 08:06] VITALS: BMI 30.7
[2019-12-26 09:56] LABS: Absolute Neutrophil Count 2.4 X10^3/uL (2.0-7.7); Basophil# 0.07 X10^3/uL; Basophil% 1.8 % (0-1); Eosinophil# 0.14 X10^3/uL; Eosinophils% 3.6 % (0-5); Hematocrit 40.7 % (37-47); Hemoglobin 12.8 g/dL (12.0-15.0); Lymphocyte % 17.8 % (19-41); Mean Corp Hgb Conc 31.4 g/dL (32-36); Mean Corpuscular Volume 92.3 fL (81-99); Mean Platelet Vol. 9.6 fl (6.2-12.0); Monocyte% 15.2 % (0-10); NRBC Flagged by Analyzer 0 % (0-5); Neutrophil # 2.42 X10^3/uL (2.7-7.7); Neutrophil % 61.3 % (47-70); Platelet Count 202 K/mm3 (150-450); RBC Distribution Width CV 15.9 % (11.6-14.6); RBC Distribution Width SD 53.9 fl (35.1-43.9); Red Blood Count 4.41 M/mm3 (4.2-5.4); White Blood Count 3.9 K/mm3 (4.4-11.0)
[2019-12-26 10:02] LABS: Prothrombin Time (Protime)PT. 22.1 SECONDS (11.7-14.9)
[2019-12-26 10:12] LABS: ALB/GLOB Ratio 0.8 RATIO (0.9-2.4); AST(SGOT) 22 U/L (15-37); Alanine Aminotransfer ALT/SGPT 25 U/L (13-56); Albumin, Serum 3.4 g/dL (3.2-5.0); Alkaline Phosphatase 84 U/L (45-117); Anion Gap 4 (5-15); BUN 19 mg/dL (7-18); BUN/Creat Ratio 16.7 RATIO (10-20); Calcium,Total 9.4 mg/dL (8.5-10.1); Chloride 105 mmol/L (98-107); Creatinine, Serum 1.14 mg/dL (0.55-1.02); EST Glomerular Filtration Rate 48 mL/min (>60); Est Glom Filt Rate - Afr Amer 59 mL/min (>60); Glucose 71 mg/dL (74-106); Potassium 4.2 mmol/L (3.5-5.1); Protein, Total 7.4 g/dL (6.4-8.2); Sodium Level 140 mmol/L (136-145)
== END 2020-01-08 18:00 | disposition home or self-care (01) ==
LOC: MTLAB 09:21
PROVIDERS: Internal Medicine Rheumatology; Family Provider Family Medicine; PCP Family Medicine; Referring Provider Family Medicine; Visit Provider Family Medicine
DX: M06.4 Inflammatory polyarthropathy (principal); R76.8 Other specified abnormal immunological findings in serum; M19.041 Primary osteoarthritis, right hand; K21.9 Gastro-esophageal reflux disease without esophagitis; I48.91 Unspecified atrial fibrillation; Z86.711 Personal history of pulmonary embolism; Z86.718 Personal history of other venous thrombosis and embolism; Z85.3 Personal history of malignant neoplasm of breast; Z86.73 Personal history of transient ischemic attack (TIA), and cerebral infarction without residual deficits; Z79.01 Long term (current) use of anticoagulants
CPT/HCPCS: 36415; 80053; 85025; 85610

== ENCOUNTER 2020-01-22 08:50 | Outpatient (RCR) | payer MEDICARE, SELFPAY ==
[2019-08-26 08:06] VITALS: BMI 30.7
[2020-01-22 09:58] LABS: Prothrombin Time (Protime)PT. 22.2 SECONDS (11.7-14.9)
== END 2020-01-22 18:00 | disposition home or self-care (01) ==
LOC: MTLAB 08:50
PROVIDERS: Family Provider Family Medicine; PCP Family Medicine; Referring Provider Family Medicine; Visit Provider Family Medicine
DX: Z79.01 Long term (current) use of anticoagulants (principal)
CPT/HCPCS: 36415; 85610

== ENCOUNTER 2020-02-23 10:16 | Outpatient (RCR) | payer MEDICARE, SELFPAY ==
[2019-08-26 08:06] VITALS: BMI 30.7
[2020-02-23 12:49] LABS: International Normalized Ratio 2.3; Prothrombin Time (Protime)PT. 24.6 SECONDS (11.7-14.9)
== END 2020-02-23 18:00 | disposition home or self-care (01) ==
LOC: MTLAB 10:16
PROVIDERS: Family Provider Family Medicine; PCP Family Medicine; Referring Provider Family Medicine; Visit Provider Family Medicine
DX: Z79.01 Long term (current) use of anticoagulants (principal)
CPT/HCPCS: 36415; 85610

== ENCOUNTER → 2020-03-15 11:20 | Outpatient (CLI) | payer MEDICARE, SELFPAY ==
[2019-08-26 08:06] VITALS: BMI 30.7
--- NOTE | 2020-03-15 11:24 | RAD_ITS ---
STUDY: X-RAY - RIGHT KNEE REASON FOR EXAM: Female, 84 years old. right knee pain, posterior TECHNIQUE: 4 view(s) of the knee. COMPARISON: None. FINDINGS: Normal visualized distal femur. Normal visualized proximal tibia and fibula. Normal proximal tibiofibular articulation. Normal medial femorotibial compartment. There is moderate degenerative arthrosis of the lateral femorotibial compartment with moderate joint space narrowing. Normal patellofemoral articulation. Vascular calcifications. RAD/Knee 4 or More Views IMPRESSION: Moderate lateral compartment osteoarthritis. Electronically Signed: Tye Roldan MD at 22:04 EDT Tel , Service support ,
== END ==
PROVIDERS: PCP Family Medicine; Referring Provider Nurse Practitioner Family; Visit Provider Nurse Practitioner Family
DX: M25.561 Pain in right knee (principal)
CPT/HCPCS: 73564

== ENCOUNTER 2020-03-22 09:22 | Outpatient (RCR) | payer MEDICARE, SELFPAY ==
[2019-08-26 08:06] VITALS: BMI 30.7
[2020-03-22 10:28] LABS: International Normalized Ratio 2.1; Prothrombin Time (Protime)PT. 23.4 SECONDS (11.7-14.9)
== END 2020-03-22 18:00 | disposition home or self-care (01) ==
LOC: MTLAB 09:22
PROVIDERS: Family Provider Family Medicine; PCP Family Medicine; Referring Provider Family Medicine; Visit Provider Family Medicine
DX: Z79.01 Long term (current) use of anticoagulants (principal)
CPT/HCPCS: 36415; 85610

== ENCOUNTER 2020-04-19 10:40 | Outpatient (RCR) | payer MEDICARE, SELFPAY ==
[2019-08-26 08:06] VITALS: BMI 30.7
[2020-04-19 13:08] LABS: International Normalized Ratio 2.1; Prothrombin Time (Protime)PT. 22.9 SECONDS (11.7-14.9)
== END 2020-05-10 18:00 | disposition home or self-care (01) ==
LOC: MTLAB 10:40
PROVIDERS: Family Provider Family Medicine; PCP Family Medicine; Referring Provider Family Medicine; Visit Provider Family Medicine
DX: Z79.01 Long term (current) use of anticoagulants (principal)
CPT/HCPCS: 36415; 85610

== ENCOUNTER 2020-05-18 08:10 | Outpatient (RCR) | payer MEDICARE, SELFPAY ==
[2019-08-26 08:06] VITALS: BMI 30.7
[2020-05-18 10:35] LABS: Absolute Lymphocyte Count 0.58 X10^3/uL (0.83-4.51); Absolute Neutrophil Count 2.3 X10^3/uL (2.0-7.7); Basophil# 0.04 X10^3/uL; Basophil% 1.2 % (0-1); Eosinophil# 0.13 X10^3/uL; Eosinophils% 3.8 % (0-5); Hematocrit 42.6 % (37-47); Hemoglobin 13.3 g/dL (12.0-15.0); Lymphocyte # 0.58 X10^3/ul (4.0); Lymphocyte % 16.9 % (19-41); Mean Corp Hgb Conc 31.2 g/dL (32-36); Mean Corpuscular Hgb 29.7 pg (27.0-32.0); Mean Corpuscular Volume 95.1 fL (81-99); Mean Platelet Vol. 10.2 fl (6.2-12.0); Monocyte# 0.38 X10^3/uL; Monocyte% 11.1 % (0-10); NRBC Flagged by Analyzer 0 % (0-5); Neutrophil # 2.29 X10^3/uL (2.7-7.7); Neutrophil % 66.7 % (47-70); POSITIVE DIFFERENTIAL YES; Platelet Count 200 K/mm3 (150-450); Red Blood Count 4.48 M/mm3 (4.2-5.4); White Blood Count 3.4 K/mm3 (4.4-11.0)
[2020-05-18 10:54] LABS: International Normalized Ratio 2.3; Prothrombin Time (Protime)PT. 24.7 SECONDS (11.7-14.9)
[2020-05-18 10:57] LABS: Vitamin B12 453 pg/mL (211-911); Vitamin D,25 Hydroxy 60.5 ng/mL
[2020-05-18 10:59] LABS: Differential Indicated SCAN CRITERIA MET
[2020-05-18 11:16] LABS: ALB/GLOB Ratio 0.8 RATIO (0.9-2.4); AST(SGOT) 20 U/L (15-37); Alanine Aminotransfer ALT/SGPT 20 U/L (13-56); Albumin, Serum 3.4 g/dL (3.2-5.0); Alkaline Phosphatase 77 U/L (45-117); Anion Gap 3 (5-15); BUN 19 mg/dL (7-18); BUN/Creat Ratio 16.8 RATIO (10-20); Chloride 106 mmol/L (98-107); Cholesterol 154 mg/dL (200); Creatinine, Serum 1.13 mg/dL (0.55-1.02); EST Glomerular Filtration Rate 49 mL/min (>60); Est Glom Filt Rate - Afr Amer 59 mL/min (>60); Glucose 89 mg/dL (74-106); High Density Lipoprotein 70 mg/dL; Potassium 3.8 mmol/L (3.5-5.1); Protein, Total 7.4 g/dL (6.4-8.2); Sodium Level 139 mmol/L (136-145); Thyroid Stim Hormone (TSH) 1.27 uIU/mL (0.358-3.74); Triglycerides 90 mg/dL; Very Low Density Lipoprotein 18 mg/dL (5-40)
[2020-05-20 09:11] LABS: Pathologist Review Reviewed
== END 2020-05-18 18:00 | disposition home or self-care (01) ==
LOC: MTLAB 08:10
PROVIDERS: Family Provider Family Medicine; PCP Family Medicine; Referring Provider Family Medicine; Visit Provider Family Medicine
DX: Z79.01 Long term (current) use of anticoagulants (principal); R53.83 Other fatigue; I10 Essential (primary) hypertension
CPT/HCPCS: 36415; 80053; 80061; 82306; 82607; 84443; 85025; 85610

== ENCOUNTER 2020-06-15 09:36 | Outpatient (RCR) | payer MEDICARE, SELFPAY ==
[2019-08-26 08:06] VITALS: BMI 30.7
[2020-06-15 12:30] LABS: International Normalized Ratio 2.4; Prothrombin Time (Protime)PT. 25.9 SECONDS (11.7-14.9)
== END 2020-06-15 18:00 | disposition home or self-care (01) ==
LOC: MTLAB 09:36
PROVIDERS: Family Provider Family Medicine; PCP Family Medicine; Referring Provider Family Medicine; Visit Provider Family Medicine
DX: Z79.01 Long term (current) use of anticoagulants (principal)
CPT/HCPCS: 36415; 85610

== ENCOUNTER → 2020-06-25 09:06 | Outpatient (CLI) | payer MEDICARE, SELFPAY ==
[2019-08-26 08:06] VITALS: BMI 30.7
[2020-06-25 10:11] LABS: Absolute Neutrophil Count 2.5 X10^3/uL (2.0-7.7); Basophil# 0.07 X10^3/uL; Basophil% 1.8 % (0-1); Hematocrit 41.9 % (37-47); Lymphocyte % 17.6 % (19-41); Mean Corpuscular Hgb 29.8 pg (27.0-32.0); Mean Corpuscular Volume 96.1 fL (81-99); Mean Platelet Vol. 9.4 fl (6.2-12.0); Monocyte# 0.46 X10^3/uL; Monocyte% 11.6 % (0-10); NRBC Flagged by Analyzer 0 % (0-5); Neutrophil # 2.53 X10^3/uL (2.7-7.7); Neutrophil % 63.7 % (47-70); Platelet Count 211 K/mm3 (150-450); RBC Distribution Width CV 15.9 % (11.6-14.6); Red Blood Count 4.36 M/mm3 (4.2-5.4)
[2020-06-25 10:42] LABS: ALB/GLOB Ratio 0.8 RATIO (0.9-2.4); AST(SGOT) 21 U/L (15-37); Alanine Aminotransfer ALT/SGPT 25 U/L (13-56); Albumin, Serum 3.4 g/dL (3.2-5.0); Alkaline Phosphatase 81 U/L (45-117); Anion Gap 3 (5-15); BUN 19 mg/dL (7-18); BUN/Creat Ratio 15.8 RATIO (10-20); Chloride 104 mmol/L (98-107); EST Glomerular Filtration Rate 46 mL/min (>60); Est Glom Filt Rate - Afr Amer 55 mL/min (>60); Globulin 4.3 g/dL (2.2-4.2); Glucose 84 mg/dL (74-106); Protein, Total 7.7 g/dL (6.4-8.2); Sodium Level 138 mmol/L (136-145)
== END ==
PROVIDERS: PCP Family Medicine; Referring Provider Internal Medicine Rheumatology; Visit Provider Internal Medicine Rheumatology
DX: M06.4 Inflammatory polyarthropathy (principal); R76.8 Other specified abnormal immunological findings in serum; M19.041 Primary osteoarthritis, right hand; K21.9 Gastro-esophageal reflux disease without esophagitis; I48.91 Unspecified atrial fibrillation; Z86.711 Personal history of pulmonary embolism; Z86.73 Personal history of transient ischemic attack (TIA), and cerebral infarction without residual deficits; Z86.718 Personal history of other venous thrombosis and embolism; Z85.3 Personal history of malignant neoplasm of breast
CPT/HCPCS: 36415; 80053; 85025

== ENCOUNTER → 2020-07-19 09:33 | Outpatient (CLI) | payer MEDICARE, SELFPAY ==
[2019-08-26 08:06] VITALS: BMI 30.7
[2020-07-19 12:35] LABS: Prothrombin Time (Protime)PT. 22.5 SECONDS (11.7-14.9)
== END ==
PROVIDERS: PCP Family Medicine; Referring Provider Family Medicine; Visit Provider Family Medicine
DX: Z79.01 Long term (current) use of anticoagulants (principal)
CPT/HCPCS: 36415; 85610

== ENCOUNTER 2020-08-03 10:06 | Outpatient (RCR) | payer MEDICARE, SELFPAY ==
[2019-08-26 08:06] VITALS: BMI 30.7
[2020-08-03 12:18] LABS: International Normalized Ratio 2.7; Prothrombin Time (Protime)PT. 28.2 SECONDS (11.7-14.9)
== END 2020-08-03 18:00 | disposition home or self-care (01) ==
LOC: MTLAB 10:06
PROVIDERS: Family Provider Family Medicine; PCP Family Medicine; Referring Provider Family Medicine; Visit Provider Family Medicine
DX: Z79.01 Long term (current) use of anticoagulants (principal)
CPT/HCPCS: 36415; 85610

== ENCOUNTER 2020-08-30 10:33 | Outpatient (RCR) | payer MEDICARE, SELFPAY ==
[2019-08-26 08:06] VITALS: BMI 30.7
[2020-08-30 12:43] LABS: International Normalized Ratio 2.3; Prothrombin Time (Protime)PT. 24.6 SECONDS (11.7-14.9)
== END 2020-08-30 18:00 | disposition home or self-care (01) ==
LOC: MTLAB 10:33
PROVIDERS: Family Provider Family Medicine; PCP Family Medicine; Referring Provider Family Medicine; Visit Provider Family Medicine
DX: I48.91 Unspecified atrial fibrillation (principal)
CPT/HCPCS: 36415; 85610

== ENCOUNTER → 2020-09-08 10:14 | Outpatient (CLI) | payer MEDICARE, SELFPAY ==
[2019-08-26 08:06] VITALS: BMI 30.7
[2020-09-08 12:25] LABS: Absolute Lymphocyte Count 0.68 X10^3/uL (0.83-4.51); Absolute Neutrophil Count 3.2 X10^3/uL (2.0-7.7); Basophil# 0.05 X10^3/uL; Basophil% 1.1 % (0-1); Eosinophil# 0.12 X10^3/uL; Eosinophils% 2.6 % (0-5); Hematocrit 42.1 % (37-47); Hemoglobin 13.3 g/dL (12.0-15.0); Lymphocyte # 0.68 X10^3/ul (4.0); Lymphocyte % 14.7 % (19-41); Mean Corp Hgb Conc 31.6 g/dL (32-36); Mean Corpuscular Hgb 30.4 pg (27.0-32.0); Mean Corpuscular Volume 96.3 fL (81-99); Mean Platelet Vol. 10.4 fl (6.2-12.0); Monocyte# 0.59 X10^3/uL; Monocyte% 12.7 % (0-10); NRBC Flagged by Analyzer 0 % (0-5); Neutrophil # 3.19 X10^3/uL (2.7-7.7); Neutrophil % 68.7 % (47-70); Platelet Count 222 K/mm3 (150-450); RBC Distribution Width CV 15.7 % (11.6-14.6); RBC Distribution Width SD 55.8 fl (35.1-43.9); Red Blood Count 4.37 M/mm3 (4.2-5.4); White Blood Count 4.6 K/mm3 (4.4-11.0)
[2020-09-08 12:51] LABS: ALB/GLOB Ratio 0.9 RATIO (0.9-2.4); AST(SGOT) 17 U/L (15-37); Alanine Aminotransfer ALT/SGPT 22 U/L (13-56); Albumin, Serum 3.5 g/dL (3.2-5.0); Alkaline Phosphatase 72 U/L (45-117); Anion Gap 3 (5-15); BUN 20 mg/dL (7-18); BUN/Creat Ratio 16.7 RATIO (10-20); Calcium,Total 9.3 mg/dL (8.5-10.1); Chloride 105 mmol/L (98-107); EST Glomerular Filtration Rate 46 mL/min (>60); Est Glom Filt Rate - Afr Amer 55 mL/min (>60); Glucose 78 mg/dL (74-106); Potassium 4.4 mmol/L (3.5-5.1); Protein, Total 7.5 g/dL (6.4-8.2); Sodium Level 138 mmol/L (136-145)
== END ==
PROVIDERS: PCP Family Medicine; Referring Provider Internal Medicine Rheumatology; Visit Provider Internal Medicine Rheumatology
DX: M06.4 Inflammatory polyarthropathy (principal); R76.8 Other specified abnormal immunological findings in serum; M19.041 Primary osteoarthritis, right hand; K21.9 Gastro-esophageal reflux disease without esophagitis; I48.91 Unspecified atrial fibrillation; Z86.711 Personal history of pulmonary embolism; Z86.718 Personal history of other venous thrombosis and embolism; Z85.3 Personal history of malignant neoplasm of breast; Z86.73 Personal history of transient ischemic attack (TIA), and cerebral infarction without residual deficits
CPT/HCPCS: 36415; 80053; 85025

== ENCOUNTER 2020-09-23 14:42 | Outpatient (RCR) | payer MEDICARE, SELFPAY ==
[2019-08-26 08:06] VITALS: BMI 30.7
[2020-09-23 18:33] LABS: International Normalized Ratio 1.8; Prothrombin Time (Protime)PT. 20.7 SECONDS (11.7-14.9)
== END 2020-09-23 18:00 | disposition home or self-care (01) ==
LOC: MTLAB 14:42
PROVIDERS: Family Provider Family Medicine; PCP Family Medicine; Referring Provider Family Medicine; Visit Provider Family Medicine
DX: I26.99 Other pulmonary embolism without acute cor pulmonale (principal)
CPT/HCPCS: 36415; 85610

== ENCOUNTER → 2020-10-12 | Outpatient (CLI) | payer MEDICARE, SELFPAY ==
[2020-10-08 08:09] VITALS: BMI 29.0
== END | disposition home or self-care (01) ==
LOC: LABSPEC 10:07
PROVIDERS: PCP Family Medicine; Referring Provider Family Medicine; Visit Provider Family Medicine
DX: N39.0 Urinary tract infection, site not specified (principal)
CPT/HCPCS: 87077; 87086; 87088; 87186

== ENCOUNTER → 2020-10-14 08:31 | Outpatient (CLI) | payer MEDICARE, SELFPAY ==
[2019-08-26 08:06] VITALS: BMI 30.7
[2020-10-08 08:09] VITALS: BMI 29.0
--- NOTE | 2020-10-14 08:32 | BI_ITS ---
MAMMOGRAPHY - BILATERAL SCREENING REASON FOR EXAM: Female, 85 years old. Routine annual screening examination. PERTINENT HISTORY: Personal history of breast cancer. Prior left lumpectomy and radiation. Mother with breast cancer. TECHNIQUE: Digital bilateral breast susu (3D mammographic acquisition) in the CC and MLO projections. 2-D mediolateral oblique (MLO) and craniocaudad (CC) views of both breasts were obtained. CAD: Full Field Digital Mammography with Computer Added Detection was performed. COMPARISON: Comparison is made with prior examination dated 10/13/2019 and 10/08/2018. FINDINGS: Breast Composition: The breasts are heterogeneously dense, which may obscure small masses. There are no dominant masses or suspicious calcifications. Stable deformity of the left breast with inversion of the nipple and skin thickening. Stable postoperative architectural distortion. Stable 2.4 cm x 2.3 cm soft tissue density at the surgical site. No other significant abnormalities are identified. There has been no significant change since the prior study. BI/SCRN MAMM (CAD)W/SUSU BILAT IMPRESSION: Stable bilateral screening mammogram. Yearly follow-up mammogram recommended. (A) ASSESSMENT CATEGORY: BIRADS Category 2: Benign. A letter regarding these results will be sent to the patient by the facility within 30 days. Approximately 10% of breast cancers are not detected by mammography. A normal mammogram should not delay biopsy of a clinically suspicious abnormality. [id number] Electronically Signed: Ramiro Barillas MD at 10:14 EST , Service support ,
== END ==
PROVIDERS: PCP Family Medicine; Referring Provider Family Medicine; Visit Provider Family Medicine
DX: Z12.31 Encounter for screening mammogram for malignant neoplasm of breast (principal)
CPT/HCPCS: 77063; 77067

== ENCOUNTER → 2020-10-18 12:12 | Outpatient (CLI) | payer MEDICARE, SELFPAY ==
[2020-10-08 08:09] VITALS: BMI 29.0
[2020-10-18 12:14] LABS: Mucous, Urine 0 SEEN /hpf (<or=2+); Squamous Epithelial Cells - UA 0 SEEN /hpf (5-10)
[2020-10-18 15:21] LABS: Color, Urine Yellow (Yellow); Glucose, Dipstick Normal (Normal); Ketone-Dipstick Negative (Negative); Leukocyte Esterase-Dipstick 500 /ul (Negative); Nitrite-Dipstick Positive (Negative); Occult Blood-Urine 50 /ul (Negative); Protein-Dipstick 30 mg/dl (Negative); Urine Bilirubin Dipstick Negative (Negative); Urine Clarity Cloudy (Clear); Urine Urobilinogen Normal (Normal); Urine pH 6.5 (5.0 - 8.0)
[2020-10-18 15:28] LABS: Red Blood Cells-Urine 0-5 SEEN /hpf (0-5); White Blood Cells 50-100 SEEN /hpf (0-5)
[2020-10-18 15:29] LABS: Bacteria 1+ /hpf (None Seen)
[2020-10-18 15:31] LABS: Renal Epithelial Cells 0-5 SEEN /hpf (0-5)
== END ==
PROVIDERS: PCP Family Medicine; Visit Provider Family Medicine
DX: N39.0 Urinary tract infection, site not specified (principal)
CPT/HCPCS: 81001; 87086; 87088; 87186

== ENCOUNTER → 2020-12-20 09:51 | Outpatient (CLI) | payer MEDICARE, SELFPAY ==
[2020-10-08 08:09] VITALS: BMI 29.0
[2020-12-20 12:29] LABS: International Normalized Ratio 2.1
== END ==
PROVIDERS: PCP Family Medicine; Visit Provider Family Medicine
DX: I26.99 Other pulmonary embolism without acute cor pulmonale (principal)
CPT/HCPCS: 36415; 85610

== ENCOUNTER 2021-01-03 09:32 | Outpatient (RCR) | payer MEDICARE, SELFPAY ==
[2020-10-08 08:09] VITALS: BMI 29.0
[2021-01-03 12:29] LABS: International Normalized Ratio 2.1; Prothrombin Time (Protime)PT. 22.5 SECONDS (11.7-14.9)
== END 2021-01-03 18:00 | disposition home or self-care (01) ==
LOC: MTLAB 09:32
PROVIDERS: Family Provider Family Medicine; PCP Family Medicine; Referring Provider Family Medicine; Visit Provider Family Medicine
DX: I26.99 Other pulmonary embolism without acute cor pulmonale (principal)
CPT/HCPCS: 36415; 85610

== ENCOUNTER 2021-01-31 10:13 | Outpatient (RCR) | payer MEDICARE, SELFPAY ==
[2020-10-08 08:09] VITALS: BMI 29.0
[2021-01-31 12:34] LABS: International Normalized Ratio 2.5; Prothrombin Time (Protime)PT. 26.2 SECONDS (11.7-14.9)
== END 2021-01-31 18:00 | disposition home or self-care (01) ==
LOC: MTLAB 10:13
PROVIDERS: Family Provider Family Medicine; PCP Family Medicine; Referring Provider Family Medicine; Visit Provider Family Medicine
DX: I26.99 Other pulmonary embolism without acute cor pulmonale (principal)
CPT/HCPCS: 36415; 85610

== ENCOUNTER 2021-03-03 10:14 | Outpatient (RCR) | payer MEDICARE, SELFPAY ==
[2020-10-08 08:09] VITALS: BMI 29.0
[2021-03-03 12:00] LABS: Absolute Lymphocyte Count 0.56 X10^3/uL (0.83-4.51); Absolute Neutrophil Count 3.3 X10^3/uL (2.0-7.7); Basophil# 0.05 X10^3/uL; Basophil% 1.1 % (0-1); Eosinophils% 2.2 % (0-5); Hematocrit 43.1 % (37-47); Hemoglobin 13.6 g/dL (12.0-15.0); Lymphocyte # 0.56 X10^3/ul (0.83-4.51); Lymphocyte % 12.4 % (19-41); Mean Corp Hgb Conc 31.6 g/dL (32-36); Mean Corpuscular Hgb 30.1 pg (27.0-32.0); Mean Corpuscular Volume 95.4 fL (81-99); Monocyte# 0.51 X10^3/uL; Monocyte% 11.3 % (0-10); NRBC Flagged by Analyzer 0 % (0-5); Neutrophil # 3.28 X10^3/uL (2.7-7.7); Neutrophil % 72.8 % (47-70); POSITIVE DIFFERENTIAL YES; Platelet Count 199 K/mm3 (150-450); RBC Distribution Width CV 14.9 % (11.6-14.6); RBC Distribution Width SD 52.9 fl (35.1-43.9); Red Blood Count 4.52 M/mm3 (4.2-5.4); White Blood Count 4.5 K/mm3 (4.4-11.0)
[2021-03-03 12:06] LABS: International Normalized Ratio 2.3; Prothrombin Time (Protime)PT. 24.2 SECONDS (11.7-14.9)
[2021-03-03 12:09] LABS: Differential Indicated SCAN CRITERIA MET
[2021-03-03 12:11] LABS: ALB/GLOB Ratio 0.9 RATIO (0.9-2.4); AST(SGOT) 26 U/L (15-37); Alanine Aminotransfer ALT/SGPT 26 U/L (13-56); Albumin, Serum 3.7 g/dL (3.2-5.0); Alkaline Phosphatase 82 U/L (45-117); Anion Gap 6 (5-15); BUN 21 mg/dL (7-18); BUN/Creat Ratio 16.7 RATIO (10-20); Calcium,Total 9.3 mg/dL (8.5-10.1); Chloride 104 mmol/L (98-107); Creatinine, Serum 1.26 mg/dL (0.55-1.02); EST Glomerular Filtration Rate 43 mL/min (>60); Est Glom Filt Rate - Afr Amer 52 mL/min (>60); Globulin 4.2 g/dL (2.2-4.2); Glucose 80 mg/dL (74-106); Potassium 4.2 mmol/L (3.5-5.1); Protein, Total 7.9 g/dL (6.4-8.2); Sodium Level 139 mmol/L (136-145)
[2021-03-03 12:53] LABS: Differential Comment SCANNED
== END 2021-03-03 18:00 | disposition home or self-care (01) ==
LOC: MTLAB 10:14
PROVIDERS: Internal Medicine Rheumatology; Family Provider Family Medicine; PCP Family Medicine; Referring Provider Family Medicine; Visit Provider Family Medicine
DX: M06.4 Inflammatory polyarthropathy (principal); I26.99 Other pulmonary embolism without acute cor pulmonale; R76.8 Other specified abnormal immunological findings in serum; M19.041 Primary osteoarthritis, right hand; K21.9 Gastro-esophageal reflux disease without esophagitis; I48.91 Unspecified atrial fibrillation; Z86.711 Personal history of pulmonary embolism; Z86.718 Personal history of other venous thrombosis and embolism; Z85.3 Personal history of malignant neoplasm of breast; Z86.73 Personal history of transient ischemic attack (TIA), and cerebral infarction without residual deficits
CPT/HCPCS: 36415; 80053; 85025; 85610

== ENCOUNTER 2021-04-04 09:51 | Outpatient (RCR) | payer MEDICARE, SELFPAY ==
[2020-10-08 08:09] VITALS: BMI 29.0
[2021-04-04 12:34] LABS: Prothrombin Time (Protime)PT. 21.6 SECONDS (11.7-14.9)
== END 2021-04-04 18:00 | disposition home or self-care (01) ==
LOC: MTLAB 09:51
PROVIDERS: Family Provider Family Medicine; PCP Family Medicine; Referring Provider Family Medicine; Visit Provider Family Medicine
DX: I26.99 Other pulmonary embolism without acute cor pulmonale (principal)
CPT/HCPCS: 36415; 85610

== ENCOUNTER 2021-04-18 09:10 | Outpatient (RCR) | payer MEDICARE, SELFPAY ==
[2020-10-08 08:09] VITALS: BMI 29.0
[2021-04-18 12:20] LABS: International Normalized Ratio 2.2; Prothrombin Time (Protime)PT. 24.1 SECONDS (11.7-14.9)
== END 2021-04-18 18:00 | disposition home or self-care (01) ==
LOC: MTLAB 09:10
PROVIDERS: Family Provider Family Medicine; PCP Family Medicine; Referring Provider Family Medicine; Visit Provider Family Medicine
DX: I26.99 Other pulmonary embolism without acute cor pulmonale (principal)
CPT/HCPCS: 36415; 85610

== ENCOUNTER 2021-05-17 10:17 | Outpatient (RCR) | payer MEDICARE, SELFPAY ==
[2021-05-11 01:41] VITALS: BMI 29.0
[2021-05-17 12:27] LABS: International Normalized Ratio 2.4; Prothrombin Time (Protime)PT. 25.1 SECONDS (11.7-14.9)
== END 2021-05-17 18:00 | disposition home or self-care (01) ==
LOC: MTLAB 10:17
PROVIDERS: Family Provider Family Medicine; PCP Family Medicine; Referring Provider Family Medicine; Visit Provider Family Medicine
DX: I26.99 Other pulmonary embolism without acute cor pulmonale (principal)
CPT/HCPCS: 36415; 85610

== ENCOUNTER → 2021-06-14 13:10 | Outpatient (CLI) | payer MEDICARE, SELFPAY ==
--- NOTE | 2021-06-14 13:10 | BD_ITS ---
STUDY: DUAL ENERGY X-RAY ABSORPTIOMETRY / DXA REASON FOR EXAM: Female, 85 years old. Z78.0. Patient is postmenopausal. TECHNIQUE: Bone Mineral Density (BMD) measurements of lumbar spine and bilateral hips were obtained. COMPARISON: Comparison is made with prior study dated 11/06/2017. FINDINGS: Lumbar Spine (L1-L4): g/cm2 (0.925) / T-score (-0.5) / Z-score (2.2) Findings are suggestive of normal bone density with a low fracture risk. Left Femur Total: g/cm2 (0.827) / T-score (-0.9) / Z-score (1.4) Left Femoral Neck: g/cm2 (0.840) / T-score (-0.1) / Z-score (2.4) Right Femur Total: g/cm2 (0.748) / T-score (-1.6) / Z-score (0.7) Right Femoral Neck: g/cm2 (0.679) / T-score (-1.5) / Z-score (1.0) The T-Scores on the most recent prior examination were: Lumbar Spine (L1-L4): There has been worsening of bone density since the previous examination. Left Femur Total: which represents a worsening of 8.6%. Right Femur Total: which represents a worsening of 4.8%. BD/Dexa Bone Density Study IMPRESSION: The patient is considered osteopenic as outlined below according to World [place] Organization (WHO) criteria with a moderate fracture risk. There has been worsening of bone density since the previous examination. Reference Information: The T-score is the number of standard deviations above or below the standard which is normal for young adults at their peak bone mineral density. The World Health Organization (WHO) interprets the T-scores as follows: Above -1 Normal bone density Between -1 and -2.5 Osteopenia Equal to / or below -2.5 Osteoporosis As a practical clinical guideline, osteopenia may be graded as follows: Mild -1 through -1.5 Moderate -1.6 through -2.0 Severe -2.1 through -2.4 The Z-score is the number of standard deviations above or below age-matched controls. A Z-score of less than -1.5 would be considered abnormal. References: 1. NIH Osteoporosis and Related Bone Diseases www osteo.org 2. International Society for Clinical Densitometry www iscd.org 3. National Osteoporosis Foundation www nof.org Electronically Signed: Ramiro Barillas MD at 15:04 EDT , Service support ,
== END ==
PROVIDERS: PCP Family Medicine; Referring Provider Family Medicine; Visit Provider Family Medicine
DX: Z78.0 Asymptomatic menopausal state (principal)
CPT/HCPCS: 77080

== ENCOUNTER 2021-06-16 11:30 | Outpatient (RCR) | payer MEDICARE, SELFPAY ==
[2021-06-10 02:20] VITALS: BMI 29.0
[2021-06-16 15:36] LABS: International Normalized Ratio 2.7; Prothrombin Time (Protime)PT. 27.7 SECONDS (11.7-14.9)
== END 2021-07-10 04:08 | disposition home or self-care (01) ==
LOC: MTLAB 11:30
PROVIDERS: Family Provider Family Medicine; PCP Family Medicine; Referring Provider Family Medicine; Visit Provider Family Medicine
DX: I26.99 Other pulmonary embolism without acute cor pulmonale (principal)
CPT/HCPCS: 36415; 85610

== ENCOUNTER 2021-07-12 11:04 | Outpatient (RCR) | payer MEDICARE, SELFPAY ==
[2021-07-10 04:08] VITALS: BMI 29.0
[2021-07-12 16:05] LABS: International Normalized Ratio 2.3; Prothrombin Time (Protime)PT. 24.6 SECONDS (11.7-14.9)
== END 2021-08-09 18:00 | disposition home or self-care (01) ==
LOC: MTLAB 11:04
PROVIDERS: Family Provider Family Medicine; PCP Family Medicine; Referring Provider Family Medicine; Visit Provider Family Medicine
DX: I26.99 Other pulmonary embolism without acute cor pulmonale (principal)
CPT/HCPCS: 36415; 85610

== ENCOUNTER 2021-09-08 09:47 | Outpatient (RCR) | payer MEDICARE, SELFPAY ==
[2021-08-10 03:18] VITALS: BMI 29.0
[2021-08-18 12:34] LABS: International Normalized Ratio 3.1; Prothrombin Time (Protime)PT. 30.7 SECONDS (11.7-14.9)
[2021-09-08 12:23] LABS: Absolute Lymphocyte Count 0.62 X10^3/uL (0.83-4.51); Absolute Neutrophil Count 3.1 X10^3/uL (2.0-7.7); Basophil# 0.06 X10^3/uL; Basophil% 1.3 % (0-1); Eosinophil# 0.18 X10^3/uL; Eosinophils% 3.9 % (0-5); Hematocrit 39.5 % (37-47); Hemoglobin 12.5 g/dL (12.0-15.0); Lymphocyte # 0.62 X10^3/ul (0.83-4.51); Lymphocyte % 13.5 % (19-41); Mean Corp Hgb Conc 31.6 g/dL (32-36); Mean Corpuscular Hgb 30.8 pg (27.0-32.0); Mean Corpuscular Volume 97.3 fL (81-99); Mean Platelet Vol. 9.9 fl (6.2-12.0); Monocyte# 0.58 X10^3/uL; Monocyte% 12.7 % (0-10); NRBC Flagged by Analyzer 0 % (0-5); Neutrophil # 3.13 X10^3/uL (2.7-7.7); Neutrophil % 68.4 % (47-70); Platelet Count 192 K/mm3 (150-450); RBC Distribution Width CV 15.3 % (11.6-14.6); RBC Distribution Width SD 55.5 fl (35.1-43.9); Red Blood Count 4.06 M/mm3 (4.2-5.4); White Blood Count 4.6 K/mm3 (4.4-11.0)
[2021-09-08 12:29] LABS: Prothrombin Time (Protime)PT. 21.8 SECONDS (11.7-14.9)
[2021-09-08 12:57] LABS: ALB/GLOB Ratio 0.8 RATIO (0.9-2.4); AST(SGOT) 26 U/L (15-37); Alanine Aminotransfer ALT/SGPT 24 U/L (13-56); Albumin, Serum 3.2 g/dL (3.2-5.0); Alkaline Phosphatase 70 U/L (45-117); Anion Gap 4 (5-15); BUN 19 mg/dL (7-18); BUN/Creat Ratio 19.2 RATIO (10-20); Calcium,Total 9.4 mg/dL (8.5-10.1); Chloride 106 mmol/L (98-107); Creatinine, Serum 0.99 mg/dL (0.55-1.02); EST Glomerular Filtration Rate 57 mL/min (>60); Est Glom Filt Rate - Afr Amer 68 mL/min (>60); Globulin 4.1 g/dL (2.2-4.2); Glucose 76 mg/dL (74-106); Potassium 3.7 mmol/L (3.5-5.1); Protein, Total 7.3 g/dL (6.4-8.2); Sodium Level 141 mmol/L (136-145)
== END 2021-09-10 18:00 | disposition home or self-care (01) ==
LOC: MTLAB 09:47
PROVIDERS: Family Provider Family Medicine; PCP Family Medicine; Referring Provider Family Medicine; Visit Provider Family Medicine
DX: I48.91 Unspecified atrial fibrillation (principal)
CPT/HCPCS: 36415; 80053; 85025; 85610

== ENCOUNTER 2021-10-25 09:38 | Outpatient (CLI) | payer MEDICARE, SELFPAY ==
[2021-10-25 12:30] LABS: Cholesterol 139 mg/dL (200); High Density Lipoprotein 72 mg/dL; Triglycerides 71 mg/dL; Very Low Density Lipoprotein 14 mg/dL (5-40)
== END 2021-10-25 23:59 | disposition home or self-care (01) ==
PROVIDERS: PCP Family Medicine; Referring Provider Family Medicine; Visit Provider Family Medicine
DX: I10 Essential (primary) hypertension (principal)
CPT/HCPCS: 36415; 80061

== ENCOUNTER 2021-11-01 14:52 | Outpatient (CLI) | payer MEDICARE, SELFPAY ==
[2021-11-01 17:43] LABS: Absolute Lymphocyte Count 0.72 X10^3/uL (0.83-4.51); Absolute Neutrophil Count 3.5 X10^3/uL (2.0-7.7); Basophil# 0.04 X10^3/uL; Basophil% 0.8 % (0-1); Eosinophil# 0.12 X10^3/uL; Eosinophils% 2.4 % (0-5); Hematocrit 37.1 % (37-47); Hemoglobin 12.3 g/dL (12.0-15.0); Lymphocyte # 0.72 X10^3/ul (0.83-4.51); Lymphocyte % 14.3 % (19-41); Mean Corp Hgb Conc 33.2 g/dL (32-36); Mean Corpuscular Hgb 31.8 pg (27.0-32.0); Mean Corpuscular Volume 95.9 fL (81-99); Mean Platelet Vol. 9.8 fl (6.2-12.0); Monocyte# 0.64 X10^3/uL; Monocyte% 12.7 % (0-10); NRBC Flagged by Analyzer 0 % (0-5); Neutrophil % 69.6 % (47-70); Platelet Count 213 K/mm3 (150-450); RBC Distribution Width SD 51.9 fl (35.1-43.9); Red Blood Count 3.87 M/mm3 (4.2-5.4)
[2021-11-01 18:19] LABS: ALB/GLOB Ratio 0.8 RATIO (0.9-2.4); AST(SGOT) 38 U/L (15-37); Alanine Aminotransfer ALT/SGPT 36 U/L (13-56); Albumin, Serum 3.3 g/dL (3.2-5.0); Alkaline Phosphatase 84 U/L (45-117); Anion Gap 4 (5-15); BUN 21 mg/dL (7-18); BUN/Creat Ratio 19.3 RATIO (10-20); Calcium,Total 9.3 mg/dL (8.5-10.1); Chloride 106 mmol/L (98-107); Creatinine, Serum 1.09 mg/dL (0.55-1.02); EST Glomerular Filtration Rate 51 mL/min (>60); Est Glom Filt Rate - Afr Amer 61 mL/min (>60); Globulin 3.9 g/dL (2.2-4.2); Glucose 94 mg/dL (74-106); Potassium 4.1 mmol/L (3.5-5.1); Protein, Total 7.2 g/dL (6.4-8.2); Sodium Level 139 mmol/L (136-145)
== END 2021-11-01 23:59 | disposition home or self-care (01) ==
LOC: MTLAB 14:53
PROVIDERS: PCP Family Medicine; Referring Provider Family Medicine; Visit Provider Family Medicine
DX: I10 Essential (primary) hypertension (principal)
CPT/HCPCS: 36415; 80053; 85025

== ENCOUNTER 2021-11-08 12:56 | Outpatient (CLI) | payer MEDICARE, SELFPAY ==
--- NOTE | 2021-11-08 13:08 | ECHOD_ITS ---
Reason For Study: CHEST PAIN Procedure This was a 2D Doppler, Color Flow transthoracic echocardiogram. Exam performed in department. Left Ventricle Normal LV size. Left ventricular systolic function is normal. The estimated ejection fraction is 55 %. No regional wall motion abnormalities noted. Right Ventricle Normal RV size. Normal systolic function. Atria The left atrium is moderately enlarged. Normal right atrium. Patent foramen ovale. Mitral Valve There is mild to moderate mitral annular calcification. Mild (1+) eccentric mitral valve insufficiency. Tricuspid Valve Normal tricuspid valve. Mild (1+) tricuspid valve insufficiency. Pulmonary artery systolic pressure is 37 mmHg. Aortic Valve Trisinus/trileaflet aortic valve. Pulmonic Valve Normal pulmonic valve. Great Vessels Normal aortic root. Pericardium/Pleural No pericardial effusion. MMode/2D Measurements & Calculations LVIDd: 4.5 cm IVSd: 1.00 cm Ao root diam: 3.1 cm LVIDs: 3.2 cm LVPWd: 1.0 cm RVDd: 3.4 cm FS: 28.5 % LAV(MOD-bp): 90.2 ml LVAd ap4: 27.9 cm2 SV(MOD-sp4): 50.8 ml LAV(MOD-bp) Indexed: 47.4 ml/m2 LVLd ap4: 6.7 cm LAV(MOD-sp2): 81.2 ml EDV(MOD-sp4): 96.5 ml LAV(MOD-sp4): 84.7 ml EDV(sp4-el): 98.5 ml LVAs ap4: 18.6 cm2 LVLs ap4: 6.2 cm ESV(MOD-sp4): 45.7 ml ESV(sp4-el): 47.5 ml EF(MOD-sp4): 52.6 % EF(sp4-el): 51.7 % SV(sp4-el): 50.9 ml LA A4 area: 28.0 cm2 LA dimension(2D): 4.3 cm RA A4 area: 24.0 cm2 Doppler Measurements & Calculations MV E max loyd: 108.6 cm/sec Ao V2 max: 129.3 cm/sec LV V1 max: 76.5 cm/sec Ao max P.7 mmHg LV V1 max P.3 mmHg PA V2 max: 75.6 cm/sec TR max loyd: 284.3 cm/sec TR max P.3 mmHg ECHO/Echo Complete Interpretation Summary Normal LV size. Left ventricular systolic function is normal. The estimated ejection fraction is 55 %. Mild (1+) tricuspid valve insufficiency. Patent foramen ovale. Mild (1+) eccentric mitral valve insufficiency. Pulmonary artery systolic pressure is 37 mmHg. The left atrium is moderately enlarged. The global longitudinal strain is normal. The global longitudinal strain = -20. 6 % (normal). Ordering Physician: Vera Garrett/Trev Matamoros Referring Physician: YANA RESENDEZ Performed By: Paris Manuel RDCS
== END 2021-11-08 23:59 | disposition home or self-care (01) ==
PROVIDERS: PCP Family Medicine; Referring Provider Physician Assistant Medical; Visit Provider Physician Assistant Medical
DX: I48.19 Other persistent atrial fibrillation (principal)
CPT/HCPCS: 93306

== ENCOUNTER 2021-12-07 10:25 | Outpatient (RCR) | payer MEDICARE, SELFPAY ==
[2021-09-11 03:53] VITALS: BMI 29.0
[2021-11-09 17:53] LABS: Prothrombin Time (Protime)PT. 30.4 SECONDS (11.7-14.9)
[2021-12-07 12:07] LABS: Absolute Lymphocyte Count 0.47 X10^3/uL (0.83-4.51); Absolute Neutrophil Count 2.4 X10^3/uL (2.0-7.7); Basophil# 0.05 X10^3/uL; Basophil% 1.4 % (0-1); Eosinophil# 0.11 X10^3/uL; Eosinophils% 3.1 % (0-5); Hematocrit 36.2 % (37-47); Hemoglobin 11.9 g/dL (12.0-15.0); Lymphocyte # 0.47 X10^3/ul (0.83-4.51); Lymphocyte % 13.2 % (19-41); Mean Corp Hgb Conc 32.9 g/dL (32-36); Mean Corpuscular Hgb 31.6 pg (27.0-32.0); Monocyte# 0.51 X10^3/uL; Monocyte% 14.3 % (0-10); NRBC Flagged by Analyzer 0 % (0-5); Neutrophil # 2.41 X10^3/uL (2.7-7.7); Neutrophil % 67.7 % (47-70); POSITIVE DIFFERENTIAL YES; Platelet Count 162 K/mm3 (150-450); RBC Distribution Width CV 15.4 % (11.6-14.6); RBC Distribution Width SD 54.8 fl (35.1-43.9); Red Blood Count 3.77 M/mm3 (4.2-5.4); White Blood Count 3.6 K/mm3 (4.4-11.0)
[2021-12-07 12:11] LABS: Differential Indicated SCAN CRITERIA MET
[2021-12-07 12:29] LABS: International Normalized Ratio 1.2; Prothrombin Time (Protime)PT. 14.8 SECONDS (11.7-14.9)
[2021-12-07 13:00] LABS: ALB/GLOB Ratio 0.9 RATIO (0.9-2.4); AST(SGOT) 32 U/L (15-37); Alanine Aminotransfer ALT/SGPT 28 U/L (13-56); Albumin, Serum 3.3 g/dL (3.2-5.0); Alkaline Phosphatase 70 U/L (45-117); Anion Gap 4 (5-15); BUN 21 mg/dL (7-18); BUN/Creat Ratio 20.4 RATIO (10-20); Calcium,Total 9.2 mg/dL (8.5-10.1); Chloride 107 mmol/L (98-107); Creatinine, Serum 1.03 mg/dL (0.55-1.02); EST Glomerular Filtration Rate 54 mL/min (>60); Est Glom Filt Rate - Afr Amer 65 mL/min (>60); Globulin 3.7 g/dL (2.2-4.2); Glucose 95 mg/dL (74-106); Sodium Level 140 mmol/L (136-145)
[2021-12-08 13:52] LABS: Pathologist Review Reviewed
== END 2021-12-08 18:00 | disposition home or self-care (01) ==
LOC: MTLAB 10:25
PROVIDERS: Family Provider Family Medicine; PCP Family Medicine; Referring Provider Family Medicine; Visit Provider Family Medicine
DX: I48.91 Unspecified atrial fibrillation (principal)
CPT/HCPCS: 36415; 80053; 85025; 85610

== ENCOUNTER 2021-12-16 09:03 | Outpatient (RCR) | payer MEDICARE, SELFPAY ==
[2021-12-09 02:15] VITALS: BMI 29.0
[2021-12-16 10:50] LABS: International Normalized Ratio 1.3; Prothrombin Time (Protime)PT. 15.4 SECONDS (11.7-14.9)
== END 2021-12-16 18:00 | disposition home or self-care (01) ==
LOC: MTLAB 09:03
PROVIDERS: Family Provider Family Medicine; PCP Family Medicine; Referring Provider Family Medicine; Visit Provider Family Medicine
DX: I48.91 Unspecified atrial fibrillation (principal)
CPT/HCPCS: 36415; 85610

== ENCOUNTER 2022-01-04 09:06 | Outpatient (RCR) | payer MEDICARE, SELFPAY ==
[2021-12-27 12:24] LABS: International Normalized Ratio 1.5; Prothrombin Time (Protime)PT. 17.6 SECONDS (11.7-14.9)
[2022-01-04 10:20] LABS: International Normalized Ratio 1.6; Prothrombin Time (Protime)PT. 18.8 SECONDS (11.7-14.9)
== END 2022-01-04 18:00 | disposition home or self-care (01) ==
LOC: MTLAB 09:06
PROVIDERS: PCP Family Medicine; Visit Provider Family Medicine
DX: I48.91 Unspecified atrial fibrillation (principal)
CPT/HCPCS: 36415; 85610

== ENCOUNTER 2022-01-19 09:45 | Outpatient (RCR) | payer MEDICARE, SELFPAY ==
[2022-01-12 12:28] LABS: International Normalized Ratio 2.3; Prothrombin Time (Protime)PT. 24.7 SECONDS (11.7-14.9)
[2022-01-19 12:43] LABS: Prothrombin Time (Protime)PT. 22.5 SECONDS (11.7-14.9)
== END 2022-01-19 18:00 | disposition home or self-care (01) ==
LOC: MTLAB 09:45
PROVIDERS: PCP Family Medicine; Referring Provider Family Medicine; Visit Provider Family Medicine
DX: I48.91 Unspecified atrial fibrillation (principal)
CPT/HCPCS: 36415; 85610

== ENCOUNTER → 2022-02-01 | Outpatient (CLI) | payer MEDICARE, SELFPAY ==
[2022-02-01 17:47] LABS: Absolute Lymphocyte Count 0.57 X10^3/uL (0.83-4.51); Absolute Neutrophil Count 2.7 X10^3/uL (2.0-7.7); Basophil# 0.05 X10^3/uL; Basophil% 1.2 % (0-1); Eosinophil# 0.11 X10^3/uL; Eosinophils% 2.7 % (0-5); Hematocrit 40.2 % (37-47); Hemoglobin 12.9 g/dL (12.0-15.0); Lymphocyte # 0.57 X10^3/ul (0.83-4.51); Lymphocyte % 14.2 % (19-41); Mean Corp Hgb Conc 32.1 g/dL (32-36); Mean Corpuscular Hgb 31.1 pg (27.0-32.0); Mean Corpuscular Volume 96.9 fL (81-99); Mean Platelet Vol. 10.4 fl (6.2-12.0); Monocyte# 0.59 X10^3/uL; Monocyte% 14.7 % (0-10); NRBC Flagged by Analyzer 0 % (0-5); Neutrophil # 2.68 X10^3/uL (2.7-7.7); POSITIVE DIFFERENTIAL YES; Platelet Count 174 K/mm3 (150-450); RBC Distribution Width CV 14.5 % (11.6-14.6); RBC Distribution Width SD 51.6 fl (35.1-43.9); Red Blood Count 4.15 M/mm3 (4.2-5.4)
[2022-02-01 18:11] LABS: Differential Indicated SCAN CRITERIA MET
[2022-02-01 18:12] LABS: Differential Comment SCANNED
[2022-02-01 18:17] LABS: ALB/GLOB Ratio 0.9 RATIO (0.9-2.4); AST(SGOT) 28 U/L (15-37); Alanine Aminotransfer ALT/SGPT 27 U/L (13-56); Albumin, Serum 3.5 g/dL (3.2-5.0); Alkaline Phosphatase 78 U/L (45-117); Anion Gap 5 (5-15); BUN 25 mg/dL (7-18); Calcium,Total 9.2 mg/dL (8.5-10.1); Chloride 104 mmol/L (98-107); Cholesterol 139 mg/dL (200); Creatinine, Serum 1.19 mg/dL (0.55-1.02); EST Glomerular Filtration Rate 46 mL/min (>60); Est Glom Filt Rate - Afr Amer 55 mL/min (>60); Globulin 3.9 g/dL (2.2-4.2); Glucose 93 mg/dL (74-106); High Density Lipoprotein 76 mg/dL; Magnesium 1.8 mg/dL (1.6-2.6); Phosphorus 3.6 mg/dL (2.5-4.9); Potassium 4.1 mmol/L (3.5-5.1); Protein, Total 7.4 g/dL (6.4-8.2); Sodium Level 137 mmol/L (136-145); Thyroid Stim Hormone (TSH) 1.08 uIU/mL (0.358-3.74); Triglycerides 55 mg/dL; Very Low Density Lipoprotein 11 mg/dL (5-40)
[2022-02-01 19:21] LABS: PTHIN 38.1 pg/mL (18.4-80.1)
[2022-02-01 22:13] LABS: Vitamin D,25 Hydroxy 59.8 ng/mL
[2022-02-02 12:55] LABS: Pathologist Review Reviewed
== END | disposition home or self-care (01) ==
LOC: MFPLAB 15:43
PROVIDERS: PCP Family Medicine; Referring Provider Family Medicine; Visit Provider Family Medicine
DX: I48.91 Unspecified atrial fibrillation (principal); N18.30 Chronic kidney disease, stage 3 unspecified; Z79.01 Long term (current) use of anticoagulants; I12.9 Hypertensive chronic kidney disease with stage 1 through stage 4 chronic kidney disease, or unspecified chronic kidney disease; Z86.73 Personal history of transient ischemic attack (TIA), and cerebral infarction without residual deficits
CPT/HCPCS: 36415; 80053; 80061; 82306; 83735; 83970; 84100; 84443; 85025

== ENCOUNTER → 2022-02-16 | Outpatient (CLI) | payer MEDICARE, SELFPAY ==
--- NOTE | 2022-02-16 09:18 | BI_ITS ---
MAMMOGRAPHY - BILATERAL DIAGNOSTIC REASON FOR EXAM: Female, 86 years old. Palpable abnormality at the left lumpectomy site. PERTINENT HISTORY: Personal history of breast cancer. Prior left lumpectomy and radiation. Sister with breast cancer. Mother with breast cancer. TECHNIQUE: Digital bilateral breast kelly (3D mammographic acquisition) in the CC and MLO projections. 2-D mediolateral oblique (MLO) and craniocaudad (CC) views of both breasts were obtained. CAD: Full Field Digital Mammography with Computer Added Detection was performed. COMPARISON: Comparison made with prior study dated 10/14/2020 and 10/13/2019. FINDINGS: Breast Composition: The breasts are heterogeneously dense, which may obscure small masses. The patient is status post left lumpectomy in the deep upper slightly central portion of the left breast with resultant postoperative scarring and skin thickening and deformity. The soft tissue density presently measures 1.8 cm x 2 cm. This has decreased in size and most likely represents postoperative scarring. No other significant abnormalities are identified. BI/DIAG MAMM W/CAD BILDARCI IMPRESSION: Stable bilateral diagnostic mammogram. One year follow-up recommended. (A) ASSESSMENT CATEGORY: BIRADS Category 2: Benign. A letter regarding these results will be sent to the patient by the facility within 30 days. Approximately 10% of breast cancers are not detected by mammography. A normal mammogram should not delay biopsy of a clinically suspicious abnormality. Electronically Signed: Ramiro Barillas MD at 11:07 EDT ,
== END | disposition home or self-care (01) ==
PROVIDERS: PCP Family Medicine; Visit Provider Family Medicine
DX: Z85.3 Personal history of malignant neoplasm of breast (principal)
CPT/HCPCS: 77062; 77066; G0279

== ENCOUNTER 2022-02-28 11:11 | Outpatient (RCR) | payer MEDICARE, SELFPAY ==
[2022-02-28 13:38] LABS: International Normalized Ratio 2.5; Prothrombin Time (Protime)PT. 27.1 SECONDS (11.7-14.9)
== END 2022-03-09 16:00 | disposition home or self-care (01) ==
LOC: MTLAB 11:11
PROVIDERS: PCP Family Medicine; Referring Provider Family Medicine; Visit Provider Family Medicine
DX: I48.91 Unspecified atrial fibrillation (principal)
CPT/HCPCS: 36415; 85610

== ENCOUNTER 2022-03-22 10:36 | Outpatient (RCR) | payer MEDICARE, SELFPAY ==
[2022-03-22 12:29] LABS: International Normalized Ratio 2.4; Prothrombin Time (Protime)PT. 26.1 SECONDS (11.7-14.9)
== END 2022-04-09 03:43 | disposition home or self-care (01) ==
LOC: MTLAB 10:36
PROVIDERS: PCP Family Medicine; Referring Provider Family Medicine; Visit Provider Family Medicine
DX: I48.91 Unspecified atrial fibrillation (principal)
CPT/HCPCS: 85610

== ENCOUNTER 2022-04-19 10:13 | Outpatient (RCR) | payer MEDICARE, SELFPAY ==
[2022-04-19 12:25] LABS: International Normalized Ratio 2.6; Prothrombin Time (Protime)PT. 27.6 SECONDS (11.7-14.9)
== END 2022-04-19 18:00 | disposition home or self-care (01) ==
LOC: MTLAB 10:13
PROVIDERS: PCP Family Medicine; Referring Provider Family Medicine; Visit Provider Family Medicine
DX: I48.91 Unspecified atrial fibrillation (principal)
CPT/HCPCS: 36415; 85610

== ENCOUNTER 2022-05-18 10:11 | Outpatient (RCR) | payer MEDICARE, SELFPAY ==
[2022-05-18 12:22] LABS: International Normalized Ratio 2.3; Prothrombin Time (Protime)PT. 24.7 SECONDS (11.7-14.9)
== END 2022-05-18 18:00 | disposition home or self-care (01) ==
LOC: MTLAB 10:11
PROVIDERS: PCP Family Medicine; Referring Provider Family Medicine; Visit Provider Family Medicine
DX: I48.91 Unspecified atrial fibrillation (principal)
CPT/HCPCS: 36415; 85610

== ENCOUNTER → 2022-06-05 | Outpatient (CLI) | payer MEDICARE, SELFPAY ==
[2022-06-05 12:10] LABS: Absolute Lymphocyte Count 0.71 X10^3/uL (0.83-4.51); Absolute Neutrophil Count 2.7 X10^3/uL (2.0-7.7); Basophil# 0.06 X10^3/uL; Basophil% 1.4 % (0-1); Eosinophil# 0.14 X10^3/uL; Eosinophils% 3.4 % (0-5); Hemoglobin 11.5 g/dL (12.0-15.0); Lymphocyte # 0.71 X10^3/ul (0.83-4.51); Lymphocyte % 17.1 % (19-41); Mean Corp Hgb Conc 31.1 g/dL (32-36); Mean Corpuscular Hgb 30.6 pg (27.0-32.0); Mean Corpuscular Volume 98.4 fL (81-99); Mean Platelet Vol. 10.1 fl (6.2-12.0); Monocyte# 0.52 X10^3/uL; Monocyte% 12.6 % (0-10); NRBC Flagged by Analyzer 0 % (0-5); Neutrophil # 2.69 X10^3/uL (2.7-7.7); Platelet Count 200 K/mm3 (150-450); RBC Distribution Width CV 16.4 % (11.6-14.6); RBC Distribution Width SD 59.3 fl (35.1-43.9); Red Blood Count 3.76 M/mm3 (4.2-5.4); White Blood Count 4.1 K/mm3 (4.4-11.0)
[2022-06-05 12:54] LABS: ALB/GLOB Ratio 0.8 RATIO (0.9-2.4); AST(SGOT) 28 U/L (15-37); Alanine Aminotransfer ALT/SGPT 29 U/L (13-56); Albumin, Serum 3.2 g/dL (3.2-5.0); Alkaline Phosphatase 99 U/L (45-117); Anion Gap 8 (5-15); BUN 23 mg/dL (7-18); BUN/Creat Ratio 20.5 RATIO (10-20); Calcium,Total 9.2 mg/dL (8.5-10.1); Chloride 105 mmol/L (98-107); Creatinine, Serum 1.12 mg/dL (0.55-1.02); EST Glomerular Filtration Rate 49 mL/min (>60); Est Glom Filt Rate - Afr Amer 59 mL/min (>60); Glucose 84 mg/dL (74-106); Potassium 3.8 mmol/L (3.5-5.1); Protein, Total 7.2 g/dL (6.4-8.2); Sodium Level 140 mmol/L (136-145)
== END | disposition home or self-care (01) ==
PROVIDERS: PCP Family Medicine; Referring Provider Internal Medicine Rheumatology; Visit Provider Internal Medicine Rheumatology
DX: M06.4 Inflammatory polyarthropathy (principal); I48.91 Unspecified atrial fibrillation; Z79.899 Other long term (current) drug therapy; R76.8 Other specified abnormal immunological findings in serum; M19.041 Primary osteoarthritis, right hand; K21.9 Gastro-esophageal reflux disease without esophagitis; Z86.711 Personal history of pulmonary embolism; Z86.718 Personal history of other venous thrombosis and embolism; Z85.3 Personal history of malignant neoplasm of breast; Z86.73 Personal history of transient ischemic attack (TIA), and cerebral infarction without residual deficits
CPT/HCPCS: 36415; 80053; 85025

== ENCOUNTER 2022-06-15 11:09 | Outpatient (RCR) | payer MEDICARE, SELFPAY ==
[2022-06-15 12:28] LABS: International Normalized Ratio 2.6; Prothrombin Time (Protime)PT. 27.8 SECONDS (11.7-14.9)
== END 2022-06-15 18:00 | disposition home or self-care (01) ==
LOC: MTLAB 11:09
PROVIDERS: PCP Family Medicine; Referring Provider Family Medicine; Visit Provider Family Medicine
DX: I48.91 Unspecified atrial fibrillation (principal)
CPT/HCPCS: 36415; 85610

== ENCOUNTER → 2022-06-29 | Outpatient (CLI) | payer MEDICARE, SELFPAY ==
[2022-06-29 15:26] LABS: Absolute Lymphocyte Count 0.66 X10^3/uL (0.83-4.51); Absolute Neutrophil Count 4.1 X10^3/uL (2.0-7.7); Basophil# 0.04 X10^3/uL; Basophil% 0.7 % (0-1); Eosinophil# 0.08 X10^3/uL; Eosinophils% 1.5 % (0-5); Hematocrit 39.2 % (37-47); Hemoglobin 12.6 g/dL (12.0-15.0); Lymphocyte # 0.66 X10^3/ul (0.83-4.51); Mean Corp Hgb Conc 32.1 g/dL (32-36); Mean Corpuscular Hgb 31.7 pg (27.0-32.0); Mean Corpuscular Volume 98.5 fL (81-99); Monocyte# 0.55 X10^3/uL; NRBC Flagged by Analyzer 0 % (0-5); Neutrophil # 4.14 X10^3/uL (2.7-7.7); Neutrophil % 75.3 % (47-70); Platelet Count 174 K/mm3 (150-450); RBC Distribution Width CV 15.4 % (11.6-14.6); RBC Distribution Width SD 56.1 fl (35.1-43.9); Red Blood Count 3.98 M/mm3 (4.2-5.4); White Blood Count 5.5 K/mm3 (4.4-11.0)
[2022-06-29 15:44] LABS: Vitamin D,25 Hydroxy 62.7 ng/mL
[2022-06-29 15:46] LABS: PTHIN 52.8 pg/mL (18.4-80.1)
[2022-06-29 15:59] LABS: ALB/GLOB Ratio 0.9 RATIO (0.9-2.4); AST(SGOT) 28 U/L (15-37); Alanine Aminotransfer ALT/SGPT 25 U/L (13-56); Albumin, Serum 3.5 g/dL (3.2-5.0); Alkaline Phosphatase 94 U/L (45-117); Anion Gap 8 (5-15); BUN 21 mg/dL (7-18); BUN/Creat Ratio 17.8 RATIO (10-20); Calcium,Total 9.6 mg/dL (8.5-10.1); Chloride 107 mmol/L (98-107); Creatinine, Serum 1.18 mg/dL (0.55-1.02); EST Glomerular Filtration Rate 46 mL/min (>60); Est Glom Filt Rate - Afr Amer 56 mL/min (>60); Glucose 87 mg/dL (74-106); Magnesium 1.9 mg/dL (1.6-2.6); Phosphorus 3.2 mg/dL (2.5-4.9); Potassium 4.2 mmol/L (3.5-5.1); Protein, Total 7.5 g/dL (6.4-8.2); Sodium Level 141 mmol/L (136-145); Thyroid Stim Hormone (TSH) 0.98 uIU/mL (0.358-3.74)
== END | disposition home or self-care (01) ==
LOC: MFPLAB 12:02
PROVIDERS: PCP Family Medicine; Referring Provider Family Medicine; Visit Provider Family Medicine
DX: I48.91 Unspecified atrial fibrillation (principal); N18.30 Chronic kidney disease, stage 3 unspecified; M85.80 Other specified disorders of bone density and structure, unspecified site
CPT/HCPCS: 36415; 80053; 82306; 83735; 83970; 84100; 84443; 85025

== ENCOUNTER 2022-07-14 08:13 | Outpatient (RCR) | payer MEDICARE, SELFPAY ==
[2022-07-14 10:17] LABS: International Normalized Ratio 2.4
== END 2022-08-09 18:00 | disposition home or self-care (01) ==
LOC: MTLAB 08:13
PROVIDERS: PCP Family Medicine; Referring Provider Family Medicine; Visit Provider Family Medicine
DX: I48.91 Unspecified atrial fibrillation (principal)
CPT/HCPCS: 36415; 85610

== ENCOUNTER 2022-07-25 13:47 | Outpatient (CLI) | payer MEDICARE, SELFPAY ==
--- NOTE | 2022-07-25 13:51 | ART_ITS ---
Reason For Study: claudication Procedure A bilateral lower extremity continuous wave Doppler with analog waveform analysis,segmental pressures,and ankle brachial indexes with exercise. Did not exercise pt due to noncompressible arteries at the ankle. No LUE BP due to Hx of lumpectomy. Left Segmental Pressures Left posterior tibial artery = 192mmHg. DP is noncompressible. Left digit = 132 mmHg. The left dorsalis pedis waveforms are triphasic. The left posterior tibial artery waveforms are triphasic. Right Segmental Pressures Right brachial= 150mmHg. Right posterior tibial artery = 196mmHg. DP is noncompressible. Right digit = 123 mmHg. The right dorsalis pedis waveforms are triphasic. The right posterior tibial artery waveforms are triphasic. Indices The right ankle brachial index by the posterior tibial artery is 1.3. The right digital-brachial index is .82. DP is noncompressible. The left ankle brachial index by the posterior tibial artery is 1.28. The left digital-brachial index is .88. DP is noncompressible. VL/Lower Ext Art Exam w/ Exercise Interpretation Summary Right RODNEY 1.3, normal. TBI and Doppler/PVR waveforms of the right leg normal at rest. Left RODNEY 1.28, normal. TBI and Doppler/PVR waveforms of the left leg normal at rest. Ordering Physician: Silvano Vasquez Performed By: Teo Ashley RVT
== END 2022-07-25 23:59 | disposition home or self-care (01) ==
LOC: CVS 13:49
PROVIDERS: PCP Family Medicine; Referring Provider Family Medicine; Visit Provider Family Medicine
DX: R09.89 Other specified symptoms and signs involving the circulatory and respiratory systems (principal)
CPT/HCPCS: 93924

== ENCOUNTER 2022-09-07 09:36 | Outpatient (RCR) | payer MEDICARE, SELFPAY ==
[2022-08-25 12:27] LABS: International Normalized Ratio 3.2; Prothrombin Time (Protime)PT. 32.7 SECONDS (11.7-14.9)
[2022-09-07 10:30] LABS: International Normalized Ratio 3.7; Prothrombin Time (Protime)PT. 36.2 SECONDS (11.7-14.9)
== END 2022-09-07 18:00 | disposition home or self-care (01) ==
LOC: MTLAB 09:36
PROVIDERS: PCP Family Medicine; Referring Provider Family Medicine; Visit Provider Family Medicine
DX: I48.91 Unspecified atrial fibrillation (principal)
CPT/HCPCS: 36415; 85610

== ENCOUNTER → 2022-11-02 | Outpatient (CLI) | payer MEDICARE, SELFPAY ==
[2022-11-02 13:07] LABS: ALB/GLOB Ratio 0.9 RATIO (0.9-2.4); AST(SGOT) 25 U/L (15-37); Alanine Aminotransfer ALT/SGPT 21 U/L (13-56); Albumin, Serum 3.5 g/dL (3.2-5.0); Alkaline Phosphatase 76 U/L (45-117); Anion Gap 5 (5-15); BUN 20 mg/dL (7-18); BUN/Creat Ratio 17.9 RATIO (10-20); Calcium,Total 10.1 mg/dL (8.5-10.1); Chloride 105 mmol/L (98-107); Cholesterol 132 mg/dL (200); Creatinine, Serum 1.12 mg/dL (0.55-1.02); EST Glomerular Filtration Rate 49 mL/min (>60); Est Glom Filt Rate - Afr Amer 59 mL/min (>60); Globulin 3.9 g/dL (2.2-4.2); Glucose 79 mg/dL (74-106); High Density Lipoprotein 82 mg/dL; Magnesium 1.8 mg/dL (1.6-2.6); Protein, Total 7.4 g/dL (6.4-8.2); Sodium Level 141 mmol/L (136-145); Thyroid Stim Hormone (TSH) 1.62 uIU/mL (0.358-3.74); Triglycerides 76 mg/dL; Very Low Density Lipoprotein 15 mg/dL (5-40)
[2022-11-02 13:57] LABS: Absolute Lymphocyte Count 0.61 X10^3/uL (0.83-4.51); Absolute Neutrophil Count 2.4 X10^3/uL (2.0-7.7); Basophil# 0.05 X10^3/uL; Basophil% 1.4 % (0-1); Eosinophil# 0.18 X10^3/uL; Eosinophils% 4.9 % (0-5); Hematocrit 40.4 % (37-47); Hemoglobin 12.9 g/dL (12.0-15.0); Lymphocyte # 0.61 X10^3/ul (0.83-4.51); Lymphocyte % 16.7 % (19-41); Mean Corp Hgb Conc 31.9 g/dL (32-36); Mean Corpuscular Hgb 30.9 pg (27.0-32.0); Mean Corpuscular Volume 96.9 fL (81-99); Mean Platelet Vol. 10.1 fl (6.2-12.0); Monocyte# 0.42 X10^3/uL; Monocyte% 11.5 % (0-10); NRBC Flagged by Analyzer 0 % (0-5); Neutrophil % 65.5 % (47-70); Platelet Count 200 K/mm3 (150-450); RBC Distribution Width CV 16.4 % (11.6-14.6); RBC Distribution Width SD 58.8 fl (35.1-43.9); Red Blood Count 4.17 M/mm3 (4.2-5.4); White Blood Count 3.7 K/mm3 (4.4-11.0)
[2022-11-02 14:14] LABS: PTHIN 20.1 pg/mL (18.4-80.1)
== END | disposition home or self-care (01) ==
LOC: MFPLAB 10:49
PROVIDERS: PCP Family Medicine; Referring Provider Family Medicine; Visit Provider Family Medicine
DX: I48.91 Unspecified atrial fibrillation (principal); N18.30 Chronic kidney disease, stage 3 unspecified; I12.9 Hypertensive chronic kidney disease with stage 1 through stage 4 chronic kidney disease, or unspecified chronic kidney disease
CPT/HCPCS: 36415; 80053; 80061; 82306; 83735; 83970; 84443; 85025

== ENCOUNTER → 2023-02-01 | Outpatient (CLI) | payer MEDICARE, SELFPAY | END | disposition home or self-care (01) | LOC: LABSPEC 12:01 | PROVIDERS: PCP Family Medicine; Referring Provider Family Medicine; Visit Provider Family Medicine | DX: N39.0 Urinary tract infection, site not specified (principal) | CPT/HCPCS: 87086; 87088; 87186 ==

== ENCOUNTER → 2023-03-12 | Outpatient (CLI) | payer MEDICARE, SELFPAY ==
[2023-03-12 09:51] LABS: Mucous, Urine 0 SEEN /hpf (<or=2+); Squamous Epithelial Cells - UA 0 SEEN /hpf (5-10)
[2023-03-12 12:40] LABS: Absolute Lymphocyte Count 0.71 X10^3/uL (0.83-4.51); Absolute Neutrophil Count 2.4 X10^3/uL (2.0-7.7); Basophil# 0.04 X10^3/uL; Eosinophil# 0.21 X10^3/uL; Eosinophils% 5.5 % (0-5); Hemoglobin 12.8 g/dL (12.0-15.0); Lymphocyte # 0.71 X10^3/ul (0.83-4.51); Lymphocyte % 18.6 % (19-41); Mean Corp Hgb Conc 32.8 g/dL (32-36); Mean Corpuscular Hgb 31.1 pg (27.0-32.0); Mean Corpuscular Volume 94.9 fL (81-99); Mean Platelet Vol. 10.2 fl (6.2-12.0); Monocyte# 0.42 X10^3/uL; NRBC Flagged by Analyzer 0 % (0-5); Neutrophil # 2.42 X10^3/uL (2.7-7.7); Neutrophil % 63.6 % (47-70); Platelet Count 193 K/mm3 (150-450); RBC Distribution Width CV 15.8 % (11.6-14.6); RBC Distribution Width SD 55.3 fl (35.1-43.9); Red Blood Count 4.11 M/mm3 (4.2-5.4); White Blood Count 3.8 K/mm3 (4.4-11.0)
[2023-03-12 12:50] LABS: PTHIN 31.8 pg/mL (18.4-80.1)
[2023-03-12 13:05] LABS: ALB/GLOB Ratio 0.8 RATIO (0.9-2.4); AST(SGOT) 26 U/L (15-37); Alanine Aminotransfer ALT/SGPT 18 U/L (13-56); Albumin, Serum 3.4 g/dL (3.2-5.0); Alkaline Phosphatase 78 U/L (45-117); Anion Gap 3 (5-15); BUN 22 mg/dL (7-18); BUN/Creat Ratio 18.5 RATIO (10-20); Calcium,Total 9.1 mg/dL (8.5-10.1); Chloride 107 mmol/L (98-107); Creatinine, Serum 1.19 mg/dL (0.55-1.02); EST Glomerular Filtration Rate 46 mL/min (>60); Est Glom Filt Rate - Afr Amer 55 mL/min (>60); Globulin 4.2 g/dL (2.2-4.2); Glucose 89 mg/dL (74-106); Phosphorus 3.3 mg/dL (2.5-4.9); Potassium 4.1 mmol/L (3.5-5.1); Protein, Total 7.6 g/dL (6.4-8.2); Sodium Level 138 mmol/L (136-145); Thyroid Stim Hormone (TSH) 1.29 uIU/mL (0.358-3.74)
[2023-03-12 13:29] LABS: Vitamin D,25 Hydroxy 69.9 ng/mL
[2023-03-12 18:24] LABS: Color, Urine Yellow (Yellow); Glucose, Dipstick Normal (Normal); Ketone-Dipstick Negative (Negative); Leukocyte Esterase-Dipstick 500 /ul (Negative); Nitrite-Dipstick Positive (Negative); Occult Blood-Urine 25 /ul (Negative); Protein-Dipstick 15 mg/dl (Negative); Urine Bilirubin Dipstick Negative (Negative); Urine Clarity Cloudy (Clear); Urine Urobilinogen Normal (Normal); Urine pH 6.5 (5.0 - 8.0)
[2023-03-12 18:43] LABS: Bacteria 2+ /hpf (None Seen); White Blood Cells 25-50 SEEN /hpf (0-5)
[2023-03-12 18:44] LABS: Red Blood Cells-Urine 0-5 SEEN /hpf (0-5)
[2023-03-12 19:13] LABS: Protein, Urine (Random) 14.7 mg/dL (<11.9); Protein:Creat Ratio 180 mg/g CRE (0-200)
== END | disposition home or self-care (01) ==
LOC: MTLAB 09:39
PROVIDERS: PCP Family Medicine; Referring Provider Family Medicine; Visit Provider Family Medicine
DX: I48.91 Unspecified atrial fibrillation (principal); N18.30 Chronic kidney disease, stage 3 unspecified; M85.80 Other specified disorders of bone density and structure, unspecified site
CPT/HCPCS: 36415; 80053; 81001; 82306; 82570; 83735; 83970; 84100; 84156; 84443; 85025

== ENCOUNTER → 2023-06-18 | Outpatient (CLI) | payer MEDICARE, SELFPAY ==
[2023-06-18 10:09] LABS: Mucous, Urine 0 SEEN /hpf (<or=2+)
[2023-06-18 12:14] LABS: Absolute Neutrophil Count 3.5 X10^3/uL (2.0-7.7); Basophil# 0.05 X10^3/uL; Basophil% 0.9 % (0-1); Eosinophil# 0.33 X10^3/uL; Eosinophils% 6.2 % (0-5); Hematocrit 42.1 % (37-47); Hemoglobin 13.2 g/dL (12.0-15.0); Lymphocyte % 15.1 % (19-41); Mean Corp Hgb Conc 31.4 g/dL (32-36); Mean Corpuscular Hgb 30.5 pg (27.0-32.0); Mean Corpuscular Volume 97.2 fL (81-99); Mean Platelet Vol. 9.7 fl (6.2-12.0); Monocyte# 0.61 X10^3/uL; Monocyte% 11.5 % (0-10); NRBC Flagged by Analyzer 0 % (0-5); Neutrophil # 3.49 X10^3/uL (2.7-7.7); Neutrophil % 65.9 % (47-70); Platelet Count 248 K/mm3 (150-450); RBC Distribution Width CV 14.6 % (11.6-14.6); RBC Distribution Width SD 52.8 fl (35.1-43.9); Red Blood Count 4.33 M/mm3 (4.2-5.4); White Blood Count 5.3 K/mm3 (4.4-11.0)
[2023-06-18 12:22] LABS: International Normalized Ratio 2.3; Prothrombin Time (Protime)PT. 25.4 SECONDS (11.7-14.9)
[2023-06-18 12:50] LABS: Vitamin D,25 Hydroxy 67.2 ng/mL
[2023-06-18 13:10] LABS: ALB/GLOB Ratio 0.7 RATIO (0.9-2.4); AST(SGOT) 25 U/L (15-37); Alanine Aminotransfer ALT/SGPT 20 U/L (13-56); Albumin, Serum 3.3 g/dL (3.2-5.0); Alkaline Phosphatase 97 U/L (45-117); Anion Gap 5 (5-15); BUN 21 mg/dL (7-18); BUN/Creat Ratio 19.4 RATIO (10-20); Calcium,Total 9.4 mg/dL (8.5-10.1); Chloride 107 mmol/L (98-107); Cholesterol 118 mg/dL (200); Creatinine, Serum 1.08 mg/dL (0.55-1.02); EST Glomerular Filtration Rate 51 mL/min (>60); Est Glom Filt Rate - Afr Amer 62 mL/min (>60); Globulin 4.7 g/dL (2.2-4.2); Glucose 93 mg/dL (74-106); High Density Lipoprotein 66 mg/dL; Potassium 3.8 mmol/L (3.5-5.1); Sodium Level 140 mmol/L (136-145); Thyroid Stim Hormone (TSH) 0.98 uIU/mL (0.358-3.74); Triglycerides 62 mg/dL; Very Low Density Lipoprotein 12 mg/dL (5-40)
[2023-06-18 17:44] LABS: Color, Urine Yellow (Yellow); Glucose, Dipstick Normal (Normal); Ketone-Dipstick Negative (Negative); Leukocyte Esterase-Dipstick 500 /ul (Negative); Nitrite-Dipstick Positive (Negative); Occult Blood-Urine 150 /ul (Negative); Protein-Dipstick 15 mg/dl (Negative); Specific Gravity, Urine 1.015 (1.002-1.030); Urine Bilirubin Dipstick Negative (Negative); Urine Clarity Sl. Cloudy (Clear); Urine Urobilinogen Normal (Normal)
[2023-06-18 17:55] LABS: Bacteria 2+ /hpf (None Seen); Red Blood Cells-Urine 0-5 SEEN /hpf (0-5); Squamous Epithelial Cells - UA 0-5 SEEN /hpf (5-10); White Blood Cells 50-100 SEEN /hpf (0-5)
[2023-06-18 17:57] LABS: Protein, Urine (Random) 21.9 mg/dL (<11.9); Protein:Creat Ratio 213 mg/g CRE (0-200)
== END | disposition home or self-care (01) ==
PROVIDERS: PCP Family Medicine; Referring Provider Family Medicine; Visit Provider Family Medicine
DX: R82.81 Pyuria (principal); I48.91 Unspecified atrial fibrillation; N18.30 Chronic kidney disease, stage 3 unspecified; M85.80 Other specified disorders of bone density and structure, unspecified site; I12.9 Hypertensive chronic kidney disease with stage 1 through stage 4 chronic kidney disease, or unspecified chronic kidney disease
CPT/HCPCS: 36415; 80053; 80061; 81001; 82306; 82570; 83735; 84156; 84443; 85025; 85610

== ENCOUNTER → 2023-06-20 | Outpatient (CLI) | payer MEDICARE, SELFPAY | END | disposition home or self-care (01) | PROVIDERS: PCP Family Medicine; Referring Provider Family Medicine; Visit Provider Family Medicine | DX: R82.81 Pyuria (principal) | CPT/HCPCS: 87086; 87088; 87186 ==

== ENCOUNTER → 2023-10-19 | Outpatient (CLI) | payer MEDICARE, SELFPAY ==
[2023-10-19 12:19] LABS: Absolute Neutrophil Count 4.1 X10^3/uL (2.0-7.7); Basophil# 0.07 X10^3/uL; Basophil% 1.2 % (0-1); Eosinophil# 0.24 X10^3/uL; Hematocrit 41.4 % (37-47); Hemoglobin 12.8 g/dL (12.0-15.0); Lymphocyte % 14.9 % (19-41); Mean Corp Hgb Conc 30.9 g/dL (32-36); Mean Platelet Vol. 9.6 fl (6.2-12.0); Monocyte% 11.6 % (0-10); NRBC Flagged by Analyzer 0 % (0-5); Neutrophil # 4.13 X10^3/uL (2.7-7.7); Platelet Count 261 K/mm3 (150-450); RBC Distribution Width SD 53.6 fl (35.1-43.9); Red Blood Count 4.27 M/mm3 (4.2-5.4); White Blood Count 6.1 K/mm3 (4.4-11.0)
[2023-10-19 12:36] LABS: Vitamin D,25 Hydroxy 56.9 ng/mL
[2023-10-19 12:56] LABS: ALB/GLOB Ratio 0.8 RATIO (0.9-2.4); AST(SGOT) 20 U/L (15-37); Alanine Aminotransfer ALT/SGPT 18 U/L (13-56); Albumin, Serum 3.4 g/dL (3.2-5.0); Alkaline Phosphatase 81 U/L (45-117); Anion Gap 3 (5-15); BUN 25 mg/dL (7-18); BUN/Creat Ratio 21.6 RATIO (10-20); Calcium,Total 9.7 mg/dL (8.5-10.1); Chloride 106 mmol/L (98-107); Cholesterol 136 mg/dL (200); Creatinine, Serum 1.16 mg/dL (0.55-1.02); EST Glomerular Filtration Rate 47 mL/min (>60); Est Glom Filt Rate - Afr Amer 57 mL/min (>60); Globulin 4.5 g/dL (2.2-4.2); Glucose 84 mg/dL (74-106); High Density Lipoprotein 72 mg/dL; Phosphorus 3.2 mg/dL (2.5-4.9); Potassium 3.7 mmol/L (3.5-5.1); Protein, Total 7.9 g/dL (6.4-8.2); Sodium Level 139 mmol/L (136-145); Triglycerides 89 mg/dL; Very Low Density Lipoprotein 18 mg/dL (5-40)
[2023-10-19 13:34] LABS: PTHIN 44.5 pg/mL (18.4-80.1)
== END | disposition home or self-care (01) ==
LOC: MTLAB 10:57
PROVIDERS: PCP Family Medicine; Referring Provider Family Medicine; Visit Provider Family Medicine
DX: I12.9 Hypertensive chronic kidney disease with stage 1 through stage 4 chronic kidney disease, or unspecified chronic kidney disease (principal); I48.91 Unspecified atrial fibrillation; N18.30 Chronic kidney disease, stage 3 unspecified; M85.80 Other specified disorders of bone density and structure, unspecified site
CPT/HCPCS: 36415; 80053; 80061; 82306; 83735; 83970; 84100; 85025

== ENCOUNTER → 2024-02-14 | Outpatient (CLI) | payer MEDICARE, SELFPAY ==
[2024-02-14 12:24] LABS: Color, Urine Yellow (Yellow); Glucose, Dipstick Normal (Normal); Ketone-Dipstick Negative (Negative); Leukocyte Esterase-Dipstick 500 /ul (Negative); Nitrite-Dipstick Negative (Negative); Occult Blood-Urine 150 /ul (Negative); Protein-Dipstick 15 mg/dl (Negative); Specific Gravity, Urine 1.015 (1.002-1.030); Urine Bilirubin Dipstick Negative (Negative); Urine Clarity Sl. Cloudy (Clear); Urine Urobilinogen Normal (Normal)
== END | disposition home or self-care (01) ==
LOC: MFPLAB 11:02
PROVIDERS: PCP Family Medicine; Visit Provider Family Medicine
DX: Z00.00 Encounter for general adult medical examination without abnormal findings (principal); N39.0 Urinary tract infection, site not specified
CPT/HCPCS: 81002; 87086; 87088

== ENCOUNTER 2024-05-13 10:20 | Outpatient (CLI) | payer MEDICARE, SELFPAY ==
--- NOTE | 2024-05-13 10:25 | BD_ITS ---
STUDY: DUAL ENERGY X-RAY ABSORPTIOMETRY / DXA REASON FOR EXAM: Female, 88 years old. 733.90OsteopeniaBONE DENSITY REASON FOR EXAM TECHNIQUE: Bone Mineral Density (BMD) measurements of lumbar spine and bilateral hips were obtained. COMPARISON: Comparison is made with prior study June 14, 2021. FINDINGS: Lumbar Spine (L1-L4): g/cm2 (1.070) / T-score (0.2) / Z-score (3.1) Findings are suggestive of normal bone density with a low fracture risk. Left Femur Total: g/cm2 (0.752) / T-score (-1.6) / Z-score (0.8) Left Femoral Neck: g/cm2 (0.775) / T-score (-0.7) / Z-score (1.9) Right Femur Total: g/cm2 (0.703) / T-score (-2.0) / Z-score (0.4) Right Femoral Neck: g/cm2 (0.729) / T-score (-1.1) / Z-score (1.4) The T-Scores on the most recent prior examination were: Lumbar Spine (L1-L4): There has been improvement of bone density since the previous examination. Left Femur Total: which represents a worsening of 9.1. Right Femur Total: which represents a worsening of 6.1%. BD/Dexa Bone Density Study IMPRESSION: The patient is considered osteopenic as outlined below according to World Juan Organization (WHO) criteria with a moderate fracture risk. There has been worsening of bone density since the previous examination. Reference Information: The T-score is the number of standard deviations above or below the standard which is normal for young adults at their peak bone mineral density. The World Health Organization (WHO) interprets the T-scores as follows: Above -1 Normal bone density Between -1 and -2.5 Osteopenia Equal to / or below -2.5 Osteoporosis As a practical clinical guideline, osteopenia may be graded as follows: Mild -1 through -1.5 Moderate -1.6 through -2.0 Severe -2.1 through -2.4 The Z-score is the number of standard deviations above or below age-matched controls. A Z-score of less than -1.5 would be considered abnormal. References: 1. NIH Osteoporosis and Related Bone Diseases www osteo.org 2. International Society for Clinical Densitometry www iscd.org 3. National Osteoporosis Foundation www nof.org Electronically Signed: Ramiro Barillas MD at 15:02 EDT ,
== END 2024-05-13 23:59 | disposition home or self-care (01) ==
LOC: OPBD 10:21
PROVIDERS: PCP Family Medicine; Referring Provider Family Medicine; Visit Provider Family Medicine
DX: M85.861 Other specified disorders of bone density and structure, right lower leg (principal); M85.862 Other specified disorders of bone density and structure, left lower leg
CPT/HCPCS: 77080

== ENCOUNTER → 2024-06-17 | Outpatient (CLI) | payer MEDICARE, SELFPAY ==
[2024-06-17 12:24] LABS: Absolute Lymphocyte Count 0.83 X10^3/uL (0.83-4.51); Absolute Neutrophil Count 4.3 X10^3/uL (2.0-7.7); Basophil# 0.05 X10^3/uL; Basophil% 0.8 % (0-1); Eosinophil# 0.24 X10^3/uL; Hematocrit 40.3 % (37-47); Hemoglobin 12.7 g/dL (12.0-15.0); Lymphocyte # 0.83 X10^3/ul (0.83-4.51); Lymphocyte % 13.7 % (19-41); Mean Corp Hgb Conc 31.5 g/dL (32-36); Mean Corpuscular Hgb 29.4 pg (27.0-32.0); Mean Corpuscular Volume 93.3 fL (81-99); Mean Platelet Vol. 9.6 fl (6.2-12.0); Monocyte# 0.65 X10^3/uL; Monocyte% 10.7 % (0-10); NRBC Flagged by Analyzer 0 % (0-5); Neutrophil # 4.26 X10^3/uL (2.7-7.7); Neutrophil % 70.5 % (47-70); Platelet Count 251 K/mm3 (150-450); RBC Distribution Width CV 15.7 % (11.6-14.6); RBC Distribution Width SD 53.6 fl (35.1-43.9); Red Blood Count 4.32 M/mm3 (4.2-5.4); White Blood Count 6.1 K/mm3 (4.4-11.0)
[2024-06-17 12:56] LABS: Vitamin D,25 Hydroxy 65.3 ng/mL
[2024-06-17 13:09] LABS: ALB/GLOB Ratio 0.7 RATIO (0.9-2.4); AST(SGOT) 20 U/L (15-37); Alanine Aminotransfer ALT/SGPT 15 U/L (13-56); Albumin, Serum 3.2 g/dL (3.2-5.0); Alkaline Phosphatase 94 U/L (45-117); Anion Gap 6 (5-15); BUN 23 mg/dL (7-18); Calcium,Total 10.4 mg/dL (8.5-10.1); Chloride 104 mmol/L (98-107); Cholesterol 121 mg/dL (200); Creatinine, Serum 1.21 mg/dL (0.55-1.02); EST Glomerular Filtration Rate 45 mL/min (>60); Est Glom Filt Rate - Afr Amer 54 mL/min (>60); Globulin 4.8 g/dL (2.2-4.2); Glucose 93 mg/dL (74-106); High Density Lipoprotein 65 mg/dL; Magnesium 2.1 mg/dL (1.6-2.6); Potassium 4.2 mmol/L (3.5-5.1); Sodium Level 139 mmol/L (136-145); Triglycerides 65 mg/dL; Very Low Density Lipoprotein 13 mg/dL (5-40)
[2024-06-17 17:41] LABS: Protein, Urine (Random) 29.3 mg/dL (<11.9); Protein:Creat Ratio 327 mg/g CRE (0-200)
== END | disposition home or self-care (01) ==
LOC: MFPLAB 10:18
PROVIDERS: PCP Family Medicine; Visit Provider Family Medicine
DX: I48.91 Unspecified atrial fibrillation (principal); N18.30 Chronic kidney disease, stage 3 unspecified; M85.80 Other specified disorders of bone density and structure, unspecified site; I12.9 Hypertensive chronic kidney disease with stage 1 through stage 4 chronic kidney disease, or unspecified chronic kidney disease
CPT/HCPCS: 36415; 80053; 80061; 82306; 82570; 83735; 84156; 85025

== ENCOUNTER 2024-09-25 08:51 | Emergency (ER) | payer MEDICARE, SELFPAY ==
[2024-09-25 08:52] VITALS: BP 160/126; PULSE 81; RESP 16; TEMP 36.3; O2SAT 98; BMI 26.9
[2024-09-25] MEDS: Oxymetazoline 0.05% 1 SPRAY SPRAY.BTL 2 SPRAY NASAL (09:03)
--- NOTE | 2024-09-25 09:07 | EX.ED.VIS.UR ---
HPI HPI - URI History of Present Illness Chief Complaint: Nosebleed Informant: patient Onset/Context/Timing Onset: Today and Hours Context: Gradual Onset Timing: Continuous Current Severity: Moderate Maximum Severity: Moderate Narrative Narrative: 89-year-old female history of A-fib and blood clots. On Coumadin. States that she had an atraumatic nosebleed started around 630 this morning. It is out of both sides worse on the right. Denies any type of trauma to the nose. Denies any recent illness. Prior similar symptoms: Yes Recent Illness/Hospitalization: No ROS ROS ED ROS Narrative Denies recent illness. Constitutional Constitutional ED: Denies chills or fever(s) Eyes Eyes: Denies blurry vision ENT ENT ED: Denies ear pain Cardiovascular Cardiovascular: Denies chest pain Respiratory/Chest Respiratory/Chest: Denies cough or dyspnea Gastrointestinal Gastrointestinal: Denies abdominal pain Genitourinary Genitourinary ED: Denies dysuria or hematuria Musculoskeletal Musculoskeletal: Denies arthralgias Integumentary Denies abscess Neurologic Neurologic: Denies headache(s) Psychiatric Psychiatric: Denies anxiety Endocrine Endocrinology: Denies cold intolerance Hematologic/Lymphatic Hematologic/Lymphatic: Denies easy bleeding Allergic/Immunologic Allergic/Immunologic ED: Denies mouth swelling or tongue swelling PFSH [facility] Medical History Hiatal hernia Hx pulmonary embolism Atrial fibrillation Thrombophlebitis of leg Rheumatoid arthritis Vasomotor rhinitis Varicose vein of leg Osteopenia Osteoarthritis, knee Persistent atrial fibrillation Cancer of left breast Essential (primary) hypertension JACKIE (stress urinary incontinence, female) Pulmonary embolism Diverticulitis of colon Aromatase inhibitor use Obesity (BMI 30.0-34.9) Right bundle branch block DVT (deep venous thrombosis) GERD (gastroesophageal reflux disease) Invasive ductal carcinoma of left breast Hyperlipidemia Paroxysmal atrial fibrillation CVA (cerebral vascular accident) (2011) Home Medications ?Medication ?Instructions ?Recorded ?Last Taken ?Type calcium 600 mg (as 1 ea PO BID 10/11/15 10/11/15 History carbonate)-vitamin D3 10 mcg (400 1 EACH unit) tablet vjrgzuqj-pge-inhfa acid 0.4 1 ea PO DAILY 10/11/15 10/11/15 History mg-lycopene 300 mcg-lutein 250 mcg 1 EACH tablet aspirin 81 mg tablet,delayed 81 mg PO DAILY 10/04/21 Unknown History release (Adult Low Dose Aspirin) pravastatin 20 mg tablet 20 mg PO DAILY 02/01/22 Unknown History warfarin 4 mg tablet See Rx Instructions PO .COMPLEX 08/16/23 Unknown History metoprolol tartrate 25 mg tablet 25 mg PO BID #180 tabs 06/18/24 Unknown Rx losartan 25 mg tablet 12.5 mg (1/2 x 25 mg) PO DAILY #45 09/23/24 Unknown Rx tabs amoxicillin 500 mg capsule 500 mg PO BID 3 days #6 caps 09/25/24 Unknown Rx Allergy/AdvReac Type Severity Reaction Status Date / Time atorvastatin AdvReac myalgia Verified 09/25/24 08:52 Family History Mother , age 80 Breast cancer age 35 Hypertension Sister Breast cancer Age 72 Father , age 84 CHF (congestive heart failure) Surgical History History of bladder surgery History of cataract surgery History of open reduction and internal fixation (ORIF) procedure History of breast biopsy History of hysterectomy History of cholecystectomy History of lumpectomy of left breast (10/13/15) Social History Smoking Status: Never smoker alcohol intake: current alcohol intake frequency: a few times a month substance use type: does not use caffeine: Yes Type: coffee Number of servings: 1 EXAM Physical Exam Narrative Exam Narrative: 89-year-old female vital signs stable initial blood pressure 160/126. She did not take her blood pressure medication this morning. H EENT exam posterior pharynx is a lot of dried blood. She has active bleeding from both naris and clots on the right. Neck nontender. Lungs clear. Heart irregularly irregular rate about 80 consistent with A-fib. Chest wall ribs nontender. Abdomen soft nontender. Moving all 4 extremities. Nontender no edema. Neurologically she is awake and alert. Answering questions following commands. Const Vital Signs: 09/25/24 08:52 Temperature 97.4 F L Temperature Source Temporal Pulse Rate 81 Respiratory Rate 16 Blood Pressure 160/126 H Blood Pressure Mean 137 Pulse Ox 98 Oxygen Delivery Method Room Air Positive well nourished and well developed; Negative for cachectic or contractures General Appearance ED: well developed and NAD; Negative for cachectic, contractures, cyanotic or diaphoretic Nutritional Appearance: Negative for cachectic HEENT Reports moist mucous membranes HEENT Narrative: Bilateral nosebleeds. Clots on the right. Blood in the mouth and posterior pharynx. normocephalic and atraumatic Throat: posterior oropharynx abnormal; Negative for posterior oropharynx normal Eyes PERRL and EOMs intact bilaterally General Eye ED: Negative for pale conjunctiva Neck no lymphadenopathy, supple, no meningeal signs and no JVD General: Negative for anterior neck swelling or lymphadenopathy Resp normal respiratory effort and clear to auscultation bilaterally Cardio S1 normal heart sound, S2 normal heart sound and no murmurs Cardio Narrative: A-fib. Rate: other Other Details: A-fib rate about 90. ; Negative for regular rate Rhythm: Negative for regular rhythm GI non-tender, non-distended and no masses Palpation: soft; Negative for tender or guarding Back/Spine no CVA tenderness and normal ROM General Back: Negative for CVA tenderness Cervical Spine: Negative for cervical spine tenderness Thoracic Spine / Upper Back: Negative for thoracic spinal tenderness Lumbar Spine / Lower Back: Negative for lumbar spinal tenderness Sacrum: Negative for tenderness Extremity normal to inspection and full ROM General Extremety ED: Negative for cyanosis or tenderness General Extremity: Negative for cyanosis Neuro oriented x3 and CN's II-XII intact bilaterally Sensorium / Orientation: alert, oriented to person, oriented to place and oriented to time; Negative for orientation impaired, lethargic or stuporous Motor Exam: strength 5/5 throughout Psych mental status grossly normal Appearance: Negative for other Attitude: No agitated Mood & Affect: Negative for depressed, anxious or tearful Skin General Skin Exam: Negative for jaundice Lesions: no lesions Rashes: no rashes Trauma: Negative for abrasion or laceration MDM MDM MDM Narrative Medical decision making narrative: 89-year-old female bilateral nosebleeds. Anticoagulated on Coumadin due to A-fib and prior blood clots. Afrin soaked cotton balls have been placed in both sides of her nose after she blew her nose removed as many clots as possible. Her mouth is being washed out with water. Will obtain a PT/INR. She will need her nose packed. Repeat exam at 10:12 AM patient doing well. Bleeding is completely stopped on the left. Well-controlled on the right. Her INR is 2.1. She has not anterior Merocel nasal packing both sides of her nose. She is comfortable being discharged to home. She will follow-up with ENT to have a packing is removed. She be placed on amoxicillin twice daily for 4 days. History & Record Review Discussion w/independent historian: Patient and Family Additional record(s) reviewed:: Prior inpatient record, Prior outpatient record, Prior ED visit and Prior labs Lab Data Lab results narrative: Prior CBC around June was unremarkable. Labs: Laboratory Results - last 24 hr 09/25/24 09:09 PT 24.4 H INR 2.1 Procedures Other Procedures Procedure(s): Bilateral anterior Merocel nasal packs placed. Patient blew clots out of her nose. Afrin coated cotton balls in both sides. Bleeding was controlled after several minutes. Anterior nasal pack was placed in both sides. Patient tolerated well. Discharge Plan Triage Chief Complaint: Nosebleed ED Provider: Reuben Mera Dx/Rx/DC Orders Clinical Impression: Anterior epistaxis, Chronic anticoagulation, History of atrial fibrillation, History of hypertension Instructions: ED Epistaxis (Adult) Prescriptions: New amoxicillin 500 mg capsule 500 mg PO BID 3 Days Qty: 6 0RF No Action aspirin [Adult Low Dose Aspirin] 81 mg tablet,delayed release (DR/EC) 81 mg PO DAILY pravastatin 20 mg tablet 20 mg PO DAILY eazmlspt-ndt-TF-lycopen-lutein 1 EACH tablet 1 ea PO DAILY calcium carbonate-vitamin D3 1 EACH tablet 1 ea PO BID warfarin 4 mg tablet See Rx Instructions PO .COMPLEX Rx Instructions: 2 mg orally /, 4 mg all other days; metoprolol tartrate 25 mg tablet 25 mg PO BID Qty: 180 3RF losartan 25 mg tablet 12.5 mg PO DAILY Qty: 45 3RF Primary Care Provider: Silvano Vasquez Referrals: Silvano Vasquez MD [Primary Care Provider] - Subhash Smyth MD [Med Staff - Active Staff] - 3-5 Days Activity Restrictions/Additional Instructions: If rebleeds hold direct pressure for 20 to 30 minutes if unable to stop return. Packing to be taken out in 3 to 4 days. Call and follow-up with the ear nose and throat doctor Subhash Smyth. Finish the antibiotic. When we packed the nose at the place people on antibiotics and I will develop an infection. Call the ENTs office Dr. Subhash Bedoya. Their office across the street. She think an appointment Sunday morning then pull the packing out in there. In case it starts to bleed again. Print Language: Faroese Disposition Disposition: Home, Self Care
[2024-09-25 09:36] LABS: International Normalized Ratio 2.1; Prothrombin Time (Protime)PT. 24.4 SECONDS (11.7-14.9)
[2024-09-25] MEDS: Metoprolol Tartrate 25 MG Tablet PO (09:39)
[2024-09-25 10:16] VITALS: BP 142/57; PULSE 82; RESP 18; TEMP 36.5; O2SAT 96
--- NOTE | 2024-09-25 11:59 | ED.RN ---
pt wanted rx [facility] to [facility]. This was completed.
== END 2024-09-25 10:21 | disposition home or self-care (01) ==
LOC: ED 09:25
PROVIDERS: Emergency Provider Emergency Medicine; PCP Family Medicine; Visit Provider Emergency Medicine
DX: R04.0 Epistaxis (principal); I48.91 Unspecified atrial fibrillation; Z79.01 Long term (current) use of anticoagulants; I10 Essential (primary) hypertension; E78.5 Hyperlipidemia, unspecified; Z86.73 Personal history of transient ischemic attack (TIA), and cerebral infarction without residual deficits; Z79.82 Long term (current) use of aspirin; Z79.899 Other long term (current) drug therapy; Z90.710 Acquired absence of both cervix and uterus; Z90.49 Acquired absence of other specified parts of digestive tract
CPT/HCPCS: 30901; 85610; 99283; A4216

== ENCOUNTER 2024-09-25 12:49 | Emergency (ER) | payer MEDICARE, SELFPAY ==
[2024-09-25 12:50] VITALS: BP 113/77; PULSE 100; RESP 16; TEMP 36.6; O2SAT 97; BMI 26.9
--- NOTE | 2024-09-25 13:34 | EDS_ITS ---
HPI History of Present Illness Chief Complaint: Nosebleed Informant: patient and family Narrative Narrative: 89-year-old female with history of A-fib on Coumadin presenting to the emergency room with nosebleed. Patient was just seen in the emergency department and the right nasal packing came out which resulted in continued bleeding. [facility] Medical History Hiatal hernia Hx pulmonary embolism Atrial fibrillation Thrombophlebitis of leg Rheumatoid arthritis Vasomotor rhinitis Varicose vein of leg Osteopenia Osteoarthritis, knee Persistent atrial fibrillation Cancer of left breast Essential (primary) hypertension JACKIE (stress urinary incontinence, female) Pulmonary embolism Diverticulitis of colon Aromatase inhibitor use Obesity (BMI 30.0-34.9) Right bundle branch block DVT (deep venous thrombosis) GERD (gastroesophageal reflux disease) Invasive ductal carcinoma of left breast Hyperlipidemia Paroxysmal atrial fibrillation CVA (cerebral vascular accident) (2011) Home Medications ?Medication ?Instructions ?Recorded ?Last Taken ?Type calcium 600 mg (as 1 ea PO BID 10/11/15 10/11/15 History carbonate)-vitamin D3 10 mcg (400 1 EACH unit) tablet pahjwccl-lck-hqbzd acid 0.4 1 ea PO DAILY 10/11/15 10/11/15 History mg-lycopene 300 mcg-lutein 250 mcg 1 EACH tablet aspirin 81 mg tablet,delayed 81 mg PO DAILY 10/04/21 Unknown History release (Adult Low Dose Aspirin) pravastatin 20 mg tablet 20 mg PO DAILY 02/01/22 Unknown History warfarin 4 mg tablet See Rx Instructions PO .COMPLEX 08/16/23 Unknown History metoprolol tartrate 25 mg tablet 25 mg PO BID #180 tabs 06/18/24 Unknown Rx losartan 25 mg tablet 12.5 mg (1/2 x 25 mg) PO DAILY #45 09/23/24 Unknown Rx tabs amoxicillin 500 mg capsule 500 mg PO BID #6 caps 09/25/24 Unknown Rx Allergy/AdvReac Type Severity Reaction Status Date / Time atorvastatin AdvReac myalgia Verified 09/25/24 12:52 Family History Mother , age 80 Breast cancer age 35 Hypertension Sister Breast cancer Age 72 Father , age 84 CHF (congestive heart failure) Surgical History History of bladder surgery History of cataract surgery History of open reduction and internal fixation (ORIF) procedure History of breast biopsy History of hysterectomy History of cholecystectomy History of lumpectomy of left breast (10/13/15) Social History Smoking Status: Never smoker alcohol intake: current alcohol intake frequency: a few times a month substance use type: does not use caffeine: Yes Type: coffee Number of servings: 1 ROS ROS ED Constitutional Constitutional ED: Denies chills or weight loss Eyes Eyes: Denies change in vision or diplopia ENT ENT ED: Reports other Details: Epistaxis ; Denies ear pain, rhinorrhea or sore throat Cardiovascular Cardiovascular: Denies chest pain, orthopnea, palpitations or racing heartbeat Respiratory/Chest Respiratory/Chest: Denies cough, dyspnea or orthopnea Gastrointestinal Gastrointestinal: Denies abdominal pain, diarrhea, nausea or vomiting Genitourinary Genitourinary ED: Denies dysuria, hematuria or urinary frequency Musculoskeletal Musculoskeletal: Denies arthralgias or myalgias Integumentary Denies abscess or rash Neurologic Neurologic: Denies headache(s) or weakness Psychiatric Psychiatric: Denies anxiety, depression, suicidal ideation or suicidal thoughts Endocrine Endocrinology: Denies polydipsia, polyphagia or polyuria Allergic/Immunologic Allergic/Immunologic ED: Denies mouth swelling, tongue swelling or urticaria EXAM Physical Exam Const Vital Signs: 09/25/24 12:50 Temperature 97.8 F Temperature Source Temporal Pulse Rate 100 Respiratory Rate 16 Blood Pressure 113/77 Blood Pressure Mean 89 Pulse Ox 97 Oxygen Delivery Method Room Air Positive well nourished and well developed General Appearance ED: well developed HEENT Reports normocephalic, head/scalp atraumatic and moist mucous membranes HEENT Narrative: There is some nasal packing in the left naris. Right nare shows a large amount of clotting with some mild venous bleeding. Clots were removed by patient blowing. This evacuated the clots. There is still some dark red venous bleeding. Eyes PERRL and EOMs intact bilaterally Neck no lymphadenopathy, supple and no JVD Resp normal respiratory effort and clear to auscultation bilaterally Cardio regular rate, regular rhythm and no murmurs GI normal to inspection, nondistended, normoactive bowel sounds and non-tender Palpation: soft Back/Spine no CVA tenderness and normal ROM Extremity normal to inspection General Extremety ED: Negative for edema General Extremity: Negative for edema Neuro oriented x3 and CN's II-XII intact bilaterally Sensorium / Orientation: alert Motor Exam: strength 5/5 throughout Psych mental status grossly normal Mood & Affect: Negative for depressed or tearful Skin no rashes or lesions noted and no wounds MDM MDM MDM Narrative Medical decision making narrative: Patient is not hypertensive. She is anticoagulated on Coumadin [place] to obtain an INR. This was 2.2. A right anterior Rhino Rocket was placed without difficulty inflated with about 4 cc of air. The balloon was taut. She was observed. The patient was placed on amoxicillin by the previous physician. She states that prescription is not cannot be ready for her until next week and she wishes a new prescription sent to [facility]. I can send it there. History & Record Review Discussion w/independent historian: Patient Lab Data Attestation: I reviewed the patient's lab results. Labs: Laboratory Results - last 24 hr 09/25/24 14:00 PT 25.2 H INR 2.2 Discharge Plan Triage Chief Complaint: Nosebleed ED Provider: Ruperto Hanna Dx/Rx/DC Orders Clinical Impression: Epistaxis, Anticoagulated on Coumadin Instructions: ED Epistaxis (Adult) Prescriptions: New amoxicillin 500 mg capsule 500 mg PO BID Qty: 6 0RF Discontinued amoxicillin 500 mg capsule 500 mg PO BID 3 Days Qty: 6 0RF No Action aspirin [Adult Low Dose Aspirin] 81 mg tablet,delayed release (DR/EC) 81 mg PO DAILY pravastatin 20 mg tablet 20 mg PO DAILY tcjnoigf-vgy-RL-lycopen-lutein 1 EACH tablet 1 ea PO DAILY calcium carbonate-vitamin D3 1 EACH tablet 1 ea PO BID warfarin 4 mg tablet See Rx Instructions PO .COMPLEX Rx Instructions: 2 mg orally /, 4 mg all other days; metoprolol tartrate 25 mg tablet 25 mg PO BID Qty: 180 3RF losartan 25 mg tablet 12.5 mg PO DAILY Qty: 45 3RF Primary Care Provider: Silvano Vasquez Referrals: Silvano Vasquez MD [Primary Care Provider] - Subhash Smyth MD [Med Staff - Active Staff] - (3 days for packing removal) Print Language: Lithuanian Disposition Disposition: Home, Self Care Discharge Date/Time: 09/25/24 14:56
[2024-09-25 14:30] LABS: International Normalized Ratio 2.2; Prothrombin Time (Protime)PT. 25.2 SECONDS (11.7-14.9)
== END 2024-09-25 14:56 | disposition home or self-care (01) ==
PROVIDERS: Emergency Provider Emergency Medicine; PCP Family Medicine; Visit Provider Emergency Medicine
DX: R04.0 Epistaxis (principal); I48.0 Paroxysmal atrial fibrillation; I10 Essential (primary) hypertension; E78.5 Hyperlipidemia, unspecified; Z79.01 Long term (current) use of anticoagulants; Z85.3 Personal history of malignant neoplasm of breast; Z86.73 Personal history of transient ischemic attack (TIA), and cerebral infarction without residual deficits; Z79.82 Long term (current) use of aspirin; Z79.899 Other long term (current) drug therapy; Z90.710 Acquired absence of both cervix and uterus; Z90.49 Acquired absence of other specified parts of digestive tract
CPT/HCPCS: 30901; 85610; 99282; A4216

== ENCOUNTER 2024-10-01 07:03 | Emergency (ER) | payer MEDICARE, SELFPAY ==
[2024-10-01] VITALS (24 sets, daily range): BP systolic 123–164; BP diastolic 53–86; PULSE 73–90; RESP 13–30; TEMP 36.5–36.9; O2SAT 92–99; BMI 27.4
--- NOTE | 2024-10-01 07:18 | ED.VIS.CHEST ---
HPI History of Present Illness Chief Complaint: Chest Pain Informant: patient Onset/Context/Timing Onset: Today Activity at onset: sudden Timing: Continuous Quality: Positive for Tightness Location: Substernal, Right Parasternal and Right Chest Worsened By: Nothing Relieved By: NTG Associated Symptoms: Positive for Dyspnea and Palpitations; Negative for Nausea, Vomiting, Diaphoresis, Cough, Fever, Lightheadedness or Acid Reflux Narrative Narrative: Patient presents with chest pain and shortness of breath that began this morning. Patient states it began rather suddenly. Patient states it is mainly over the right side of her chest and into the substernal area. Patient describes it as tightness. Patient states nothing makes it worse. Patient states that it got better when EMS administered sublingual nitroglycerin. Patient denies any cough or fevers. Patient admits to some palpitations where she feels her heart is racing. Patient was seen here recently for epistaxis and has bilateral nasal packing in place. The patient states that she believes that the nasal packing is causing most of her shortness of breath. CVD Risk Factors: Positive for Hypertension and Hypercholesterolemia; Negative for Diabetes, Family History 1' </=55 or Smoking PE Risk Factors: Positive for Prior DVT or PE and Cancer; Negative for Recent Travel/Surgery, Recent Immobilization or OCP + Smoking + >/=35 PFSH [facility] Medical History Hiatal hernia Hx pulmonary embolism Atrial fibrillation Thrombophlebitis of leg Rheumatoid arthritis Vasomotor rhinitis Varicose vein of leg Osteopenia Osteoarthritis, knee Persistent atrial fibrillation Cancer of left breast Essential (primary) hypertension JACKIE (stress urinary incontinence, female) Pulmonary embolism Diverticulitis of colon Aromatase inhibitor use Obesity (BMI 30.0-34.9) Right bundle branch block DVT (deep venous thrombosis) GERD (gastroesophageal reflux disease) Invasive ductal carcinoma of left breast Hyperlipidemia Paroxysmal atrial fibrillation CVA (cerebral vascular accident) (2011) Home Medications ?Medication ?Instructions ?Recorded ?Last Taken ?Type calcium 600 mg (as 1 ea PO BID 10/11/15 10/11/15 History carbonate)-vitamin D3 10 mcg (400 1 EACH unit) tablet pxxrsqqr-ctd-fndxi acid 0.4 1 ea PO DAILY 10/11/15 10/11/15 History mg-lycopene 300 mcg-lutein 250 mcg 1 EACH tablet aspirin 81 mg tablet,delayed 81 mg PO DAILY 10/04/21 Unknown History release (Adult Low Dose Aspirin) pravastatin 20 mg tablet 20 mg PO DAILY 02/01/22 Unknown History warfarin 4 mg tablet See Rx Instructions PO .COMPLEX 08/16/23 Unknown History metoprolol tartrate 25 mg tablet 25 mg PO BID #180 tabs 06/18/24 Unknown Rx losartan 25 mg tablet 12.5 mg (1/2 x 25 mg) PO DAILY #45 09/23/24 Unknown Rx tabs amoxicillin 500 mg capsule 500 mg PO BID #6 caps 09/25/24 Unknown Rx Allergy/AdvReac Type Severity Reaction Status Date / Time atorvastatin AdvReac myalgia Verified 10/01/24 07:09 Family History Mother , age 80 Breast cancer age 35 Hypertension Sister Breast cancer Age 72 Father , age 84 CHF (congestive heart failure) Surgical History History of bladder surgery History of cataract surgery History of open reduction and internal fixation (ORIF) procedure History of breast biopsy History of hysterectomy History of cholecystectomy History of lumpectomy of left breast (10/13/15) Social History Smoking Status: Never smoker alcohol intake: current alcohol intake frequency: a few times a month substance use type: does not use caffeine: Yes Type: coffee Number of servings: 1 ROS ROS ED Constitutional Constitutional ED: Denies chills or fever(s) Eyes Eyes: Denies blurry vision or change in vision ENT ENT ED: Reports rhinorrhea; Denies sore throat Cardiovascular Cardiovascular: Reports chest pain and palpitations Respiratory/Chest Respiratory/Chest: Reports dyspnea; Denies cough Gastrointestinal Gastrointestinal: Denies nausea or vomiting Genitourinary Genitourinary ED: Denies dysuria or hematuria Musculoskeletal Musculoskeletal: Denies back pain or neck pain Integumentary Denies abscess or rash Neurologic Neurologic: Denies headache(s) or weakness Allergic/Immunologic Allergic/Immunologic ED: Denies mouth swelling or urticaria EXAM Physical Exam Const Vital Signs: 10/01/24 07:04 10/01/24 07:08 10/01/24 07:09 Temperature 97.9 F 97.9 F Temperature Source Oral Oral Pulse Rate 83 90 85 Respiratory Rate 18 28 H 21 H Respiratory Effort Respiratory Depth Respiratory Pattern Blood Pressure 148/76 H 148/76 H Blood Pressure Mean 100 100 Pulse Ox 92 92 Oxygen Delivery Method Room Air Room Air 10/01/24 07:10 10/01/24 07:12 10/01/24 07:15 Temperature Temperature Source Pulse Rate 85 Respiratory Rate 19 H Respiratory Effort Normal Respiratory Depth Normal Respiratory Pattern Normal Normal Blood Pressure 141/75 H Blood Pressure Mean 94 Pulse Ox Oxygen Delivery Method Room Air 10/01/24 07:30 10/01/24 07:37 10/01/24 07:45 Temperature Temperature Source Pulse Rate 86 78 Respiratory Rate 20 H 25 H Respiratory Effort Respiratory Depth Respiratory Pattern Blood Pressure 139/67 H 123/76 H Blood Pressure Mean 89 90 Pulse Ox Oxygen Delivery Method Room Air 10/01/24 08:00 10/01/24 08:09 10/01/24 08:15 Temperature 97.7 F L Temperature Source Oral Pulse Rate 73 74 78 Respiratory Rate 30 H 25 H 24 H Respiratory Effort Respiratory Depth Respiratory Pattern Blood Pressure 134/58 H 134/58 H Blood Pressure Mean 82 83 Pulse Ox 95 Oxygen Delivery Method Room Air 10/01/24 08:16 10/01/24 08:30 10/01/24 08:45 Temperature Temperature Source Pulse Rate 84 81 75 Respiratory Rate 23 H 19 H 28 H Respiratory Effort Respiratory Depth Respiratory Pattern Blood Pressure 130/69 H 135/72 H 131/53 H Blood Pressure Mean 87 90 73 Pulse Ox Oxygen Delivery Method 10/01/24 09:00 10/01/24 09:00 10/01/24 09:00 Temperature 98 F Temperature Source Oral Pulse Rate 76 79 79 Respiratory Rate 21 H 23 H 23 H Respiratory Effort Respiratory Depth Respiratory Pattern Blood Pressure 144/62 H 144/62 H Blood Pressure Mean 89 84 Pulse Ox 98 Oxygen Delivery Method Room Air 10/01/24 09:15 10/01/24 09:30 10/01/24 09:45 Temperature Temperature Source Pulse Rate 78 80 78 Respiratory Rate 27 H 18 26 H Respiratory Effort Respiratory Depth Respiratory Pattern Blood Pressure 133/73 H 142/59 H 136/79 H Blood Pressure Mean 92 82 94 Pulse Ox Oxygen Delivery Method 10/01/24 10:00 10/01/24 10:15 Temperature Temperature Source Pulse Rate 88 83 Respiratory Rate 21 H 16 Respiratory Effort Respiratory Depth Respiratory Pattern Blood Pressure 159/77 H 143/67 H Blood Pressure Mean 102 90 Pulse Ox Oxygen Delivery Method Positive well nourished and well developed General Appearance ED: well developed and NAD HEENT Reports moist mucous membranes normocephalic and atraumatic Neck supple and no JVD Resp normal respiratory effort and clear to auscultation bilaterally Cardio regular rate Rhythm: abnormal rhythm irregularly irregular GI soft to palpation, non-tender and non-distended Extremity normal to inspection General Extremety ED: Negative for edema or tenderness General Extremity: Negative for edema Neuro oriented x3, CN's II-XII intact bilaterally and no sensory deficits noted Sensorium / Orientation: awake and alert Motor Exam: strength 5/5 throughout Psych mental status grossly normal Heart Score History: Slightly/Non-Suspicious ECG: Nonspecific Repolarization Age: >/= 65 years Risk Factors: 1 or 2 Risk Factors Score: 4 MDM MDM MDM Narrative Medical decision making narrative: Differential diagnosis includes cardiac dysrhythmia, cardiac ischemia, electrolyte abnormality, pneumonia, pneumothorax, and coagulopathy. EKG will be obtained to assess for cardiac dysrhythmia and cardiac ischemia. Chest x-ray will be obtained to assess for pneumonia and pneumothorax. CBC will be obtained to assess for anemia and leukocytosis. Basic metabolic profile will be obtained to assess for electrolyte abnormality and renal function. High-sensitivity troponin will be obtained to assess for cardiac ischemia. 2-hour repeat high-sensitivity troponin will be obtained to assess for ongoing cardiac ischemia. PT with INR and PTT will be obtained to assess for coagulopathy. Lab Data Attestation: I reviewed the patient's lab results. Lab results narrative: CBC was reviewed. There is a slight anemia with a hemoglobin of 10.7 and hematocrit 32.7. Basic metabolic profile was reviewed. Creatinine was slightly elevated at 1.3. This is consistent with previous results. PT with INR and PTT were reviewed. Pro time was 15.9 and INR is 1.2. PTT was normal at 31. Initial high-sensitivity troponin was reviewed and was normal at 11. 2-hour repeat high-sensitivity troponin was reviewed and was normal at 8. Labs: Laboratory Results - last 24 hr 10/01/24 10/01/24 06:50 10:18 WBC 5.9 RBC 3.46 L Hgb 10.7 L Hct 32.7 L MCV 94.5 MCH 30.9 MCHC 32.7 RDW Std Deviation 53.1 H RDW Coeff of Cricket 15.6 H Plt Count 235 MPV 9.1 Immature Gran % (Auto) 0.300 Neut % (Auto) 64.3 Lymph % (Auto) 17.2 L Navarro % (Auto) 12.0 H Eos % (Auto) 5.2 H Baso % (Auto) 1.0 Absolute Neuts (auto) 3.8 Absolute Lymphs (auto) 1.02 Nucleated RBC % 0 PT 15.9 H INR 1.2 APTT 31.0 Sodium 139 Potassium 4.2 Chloride 105 Carbon Dioxide 27.0 Anion Gap 7 BUN 18 Creatinine 1.30 H Estim Creat Clear Calc 31.37 Est GFR (MDRD) Af Amer 50 L Est GFR (MDRD) Non-Af 41 L BUN/Creatinine Ratio 13.8 Glucose 93 Calcium 9.7 Troponin I High Sens 11 8 Radiography Chest X-Ray - ED: 1 View, Read by ED Physician, Read by Radiologist and No Acute Disease Diagnostic Testing: Clinical Impression(s) from Imaging Studies Chest X-Ray 10/01/24 07:37 IMPRESSION: Hyperinflation. Findings suggestive of a scarring at both lung bases slightly more prominent at the left lung base. Electronically Signed: Ramiro Barillas MD at 8:52 EST , Portable 1 view chest x-ray was obtained. On my independent interpretation, lung lynn show scarring at both lung bases, slightly worse on the left. There is normal cardiac silhouette. Bony thorax is normal. There is no acute process noted. Radiologist also interpreted the x-ray and agrees. EKG Initial EKG: Attestation: I personally reviewed and interpreted this EKG as follows: Interpretation: Atrial Fibrillation (85), RBBB and Non-Specific ST Changes Comments: EKG was obtained. On my independent interpretation, shows atrial fibrillation with a rate of 85. QRS interval was slightly prolonged at 128 ms. QTc interval was 485 ms. There is left axis deviation at -31. There is a right bundle branch block pattern noted. There are nonspecific ST-T wave changes noted. Prior EKG tracings: available for review Prior: Unchanged (03/01/2018) Treatment and Re-Evaluation :: Patient remained pain-free here in the emergency department. Patient was advised of her findings. Patient requested removal of the nasal packing. This was performed. There is no blood noted on the nasal packing from either nares. Patient had no further episodes of epistaxis here in the emergency department. Patient was instructed to follow-up with her primary care physician in 5 to 7 days. Patient was instructed to return if worse in any way. Patient understood and was agreeable with the plan. All questions were answered. Discharge Plan Triage Chief Complaint: Chest Pain Other Complaint: Shortness of Breath ED Provider: Gustabo Ghotra Dx/Rx/DC Orders Clinical Impression: Chest pain, Persistent atrial fibrillation, Epistaxis, Anticoagulated on Coumadin Instructions: ED Chest Pain, Uncertain Cause Prescriptions: No Action aspirin [Adult Low Dose Aspirin] 81 mg tablet,delayed release (DR/EC) 81 mg PO DAILY pravastatin 20 mg tablet 20 mg PO DAILY vitcozcx-teb-BN-lycopen-lutein 1 EACH tablet 1 ea PO DAILY calcium carbonate-vitamin D3 1 EACH tablet 1 ea PO BID warfarin 4 mg tablet See Rx Instructions PO .COMPLEX Rx Instructions: 2 mg orally /, 4 mg all other days; amoxicillin 500 mg capsule 500 mg PO BID Qty: 6 0RF metoprolol tartrate 25 mg tablet 25 mg PO BID Qty: 180 3RF losartan 25 mg tablet 12.5 mg PO DAILY Qty: 45 3RF Primary Care Provider: Silvano Vasquez Referrals: Silvano Vasquez MD [Primary Care Provider] - Print Language: Greek Disposition Disposition: Home, Self Care
--- NOTE | 2024-10-01 07:37 | RAD_ITS ---
STUDY: X-RAY CHEST REASON FOR EXAM: Female, 89 years old. Chest pain TECHNIQUE: Single AP portable view of the chest. COMPARISON: Comparison is made with prior study dated February 05, 2018. FINDINGS: EKG electrodes are seen. Mild increased linear markings at the lung bases more prominent at the left lung base suggestive of basilar scarring. Hyperinflation. There is no demonstrated pleural abnormality. Normal size heart. Normal mediastinum and sandi. Normal visualized pulmonary arteries. There is atherosclerotic calcification of the aortic arch with tortuosity. There are diffuse degenerative changes of the visualized thoracic spine. Normal visualized ribs, clavicles, and shoulders. There is no demonstrated abnormality of the visualized soft tissue structures of the upper abdomen. RAD/Chest 1 View (Portable) IMPRESSION: Hyperinflation. Findings suggestive of a scarring at both lung bases slightly more prominent at the left lung base. Electronically Signed: Ramiro Barillas MD at 8:52 EST ,
--- NOTE | 2024-10-01 07:37 | EKG12_ITS ---
Test Reason : Blood Pressure : */* mmHG Vent. Rate : 85 BPM Atrial Rate : * BPM P-R Int : * ms QRS Dur : 128 ms QT Int : 408 ms P-R-T Axes : * -31 -32 degrees QTcB Int : 485 ms Atrial fibrillation Left axis deviation Right bundle branch block Abnormal ECG Confirmed by MARLON FUENTES, MINDA ([id number]), fan mail editor LUCIO VARGHESE ([id number]) on 10/07/2024 7:05:48 AM Referred By: Confirmed By: MINDA MASON MD
[2024-10-01 07:51] LABS: Absolute Lymphocyte Count 1.02 X10^3/uL (0.83-4.51); Absolute Neutrophil Count 3.8 X10^3/uL (2.0-7.7); Basophil# 0.06 X10^3/uL; Eosinophil# 0.31 X10^3/uL; Eosinophils% 5.2 % (0-5); Hematocrit 32.7 % (37-47); Hemoglobin 10.7 g/dL (12.0-15.0); Lymphocyte # 1.02 X10^3/ul (0.83-4.51); Lymphocyte % 17.2 % (19-41); Mean Corp Hgb Conc 32.7 g/dL (32-36); Mean Corpuscular Hgb 30.9 pg (27.0-32.0); Mean Corpuscular Volume 94.5 fL (81-99); Mean Platelet Vol. 9.1 fl (6.2-12.0); Monocyte# 0.71 X10^3/uL; NRBC Flagged by Analyzer 0 % (0-5); Neutrophil # 3.81 X10^3/uL (2.7-7.7); Neutrophil % 64.3 % (47-70); Platelet Count 235 K/mm3 (150-450); RBC Distribution Width CV 15.6 % (11.6-14.6); RBC Distribution Width SD 53.1 fl (35.1-43.9); Red Blood Count 3.46 M/mm3 (4.2-5.4); White Blood Count 5.9 K/mm3 (4.4-11.0)
[2024-10-01 08:04] LABS: International Normalized Ratio 1.2; Prothrombin Time (Protime)PT. 15.9 SECONDS (11.7-14.9)
[2024-10-01 08:10] LABS: Anion Gap 7 (5-15); BUN 18 mg/dL (7-18); BUN/Creat Ratio 13.8 RATIO (10-20); Calcium,Total 9.7 mg/dL (8.5-10.1); Chloride 105 mmol/L (98-107); EST Glomerular Filtration Rate 41 mL/min (>60); Est Glom Filt Rate - Afr Amer 50 mL/min (>60); Estimated Creatinine Clearance 31.37 ml/min; Glucose 93 mg/dL (74-106); Potassium 4.2 mmol/L (3.5-5.1); Sodium Level 139 mmol/L (136-145); Troponin-I HS (w/2H Reflex) 11 pg/mL (3.0-54.0)
[2024-10-01] MEDS: Aspirin 81 MG TAB.CHEW 324 MG PO (08:15)
[2024-10-01 09:46] LABS: Reflex Troponin-HS? (from REC) Y
[2024-10-01 10:51] LABS: Troponin-I HS 8 pg/mL (3.0-54.0)
== END 2024-10-01 11:36 | disposition home or self-care (01) ==
PROVIDERS: Emergency Provider Emergency Medicine; PCP Family Medicine; Visit Provider Emergency Medicine
DX: R07.9 Chest pain, unspecified (principal); I48.19 Other persistent atrial fibrillation; I10 Essential (primary) hypertension; E78.00 Pure hypercholesterolemia, unspecified; R04.0 Epistaxis; Z79.01 Long term (current) use of anticoagulants; Z85.3 Personal history of malignant neoplasm of breast; Z86.73 Personal history of transient ischemic attack (TIA), and cerebral infarction without residual deficits; Z79.82 Long term (current) use of aspirin; Z79.899 Other long term (current) drug therapy; Z90.710 Acquired absence of both cervix and uterus; Z90.49 Acquired absence of other specified parts of digestive tract
CPT/HCPCS: 71045; 80048; 84484; 85025; 85610; 85730; 93005; 99285

== ENCOUNTER → 2024-10-17 | Outpatient (CLI) | payer MEDICARE, SELFPAY ==
[2024-10-17 12:29] LABS: Absolute Lymphocyte Count 0.85 X10^3/uL (0.83-4.51); Absolute Neutrophil Count 3.8 X10^3/uL (2.0-7.7); Basophil# 0.07 X10^3/uL; Basophil% 1.2 % (0-1); Eosinophil# 0.27 X10^3/uL; Eosinophils% 4.8 % (0-5); Hematocrit 35.3 % (37-47); Hemoglobin 10.9 g/dL (12.0-15.0); Lymphocyte # 0.85 X10^3/ul (0.83-4.51); Lymphocyte % 15.1 % (19-41); Mean Corp Hgb Conc 30.9 g/dL (32-36); Mean Corpuscular Hgb 29.5 pg (27.0-32.0); Mean Corpuscular Volume 95.7 fL (81-99); Mean Platelet Vol. 9.2 fl (6.2-12.0); Monocyte# 0.64 X10^3/uL; Monocyte% 11.3 % (0-10); NRBC Flagged by Analyzer 0 % (0-5); Neutrophil # 3.79 X10^3/uL (2.7-7.7); Neutrophil % 67.2 % (47-70); Platelet Count 256 K/mm3 (150-450); RBC Distribution Width CV 15.5 % (11.6-14.6); RBC Distribution Width SD 53.8 fl (35.1-43.9); Red Blood Count 3.69 M/mm3 (4.2-5.4); White Blood Count 5.6 K/mm3 (4.4-11.0)
[2024-10-17 12:41] LABS: PTHIN 36.1 pg/mL (18.4-80.1)
[2024-10-17 12:42] LABS: Vitamin D,25 Hydroxy 60.5 ng/mL
[2024-10-17 12:54] LABS: ALB/GLOB Ratio 0.7 RATIO (0.9-2.4); AST(SGOT) 18 U/L (15-37); Alanine Aminotransfer ALT/SGPT 19 U/L (13-56); Albumin, Serum 3.3 g/dL (3.2-5.0); Alkaline Phosphatase 69 U/L (45-117); Anion Gap 6 (5-15); BUN 20 mg/dL (7-18); BUN/Creat Ratio 16.3 RATIO (10-20); Calcium,Total 9.9 mg/dL (8.5-10.1); Chloride 105 mmol/L (98-107); Cholesterol 120 mg/dL (200); Creatinine, Serum 1.23 mg/dL (0.55-1.02); EST Glomerular Filtration Rate 44 mL/min (>60); Est Glom Filt Rate - Afr Amer 53 mL/min (>60); Globulin 4.6 g/dL (2.2-4.2); Glucose 87 mg/dL (74-106); High Density Lipoprotein 73 mg/dL; Potassium 4.2 mmol/L (3.5-5.1); Protein, Total 7.9 g/dL (6.4-8.2); Sodium Level 137 mmol/L (136-145); Triglycerides 64 mg/dL; Very Low Density Lipoprotein 13 mg/dL (5-40)
[2024-10-17 13:15] LABS: Protein, Urine (Random) 20.6 mg/dL (<11.9); Protein:Creat Ratio 216 mg/g CRE (0-200)
== END | disposition home or self-care (01) ==
LOC: MFPLAB 10:28
PROVIDERS: PCP Family Medicine; Referring Provider Family Medicine; Visit Provider Family Medicine
DX: I48.91 Unspecified atrial fibrillation (principal); N18.30 Chronic kidney disease, stage 3 unspecified; I12.9 Hypertensive chronic kidney disease with stage 1 through stage 4 chronic kidney disease, or unspecified chronic kidney disease
CPT/HCPCS: 36415; 80053; 80061; 82306; 82570; 83735; 83970; 84156; 85025

== ENCOUNTER → 2024-11-06 | Outpatient (CLI) | payer MEDICARE, SELFPAY ==
--- NOTE | 2024-11-06 14:07 | RAD_ITS ---
PROCEDURE: ACUTE ABDOMEN SERIES REASON FOR EXAM: ABDOMINAL PAIN. POSSIBLE CONSTIPATION. TECHNIQUE: Single view abdomen. COMPARISON: None FINDINGS: Bowel gas pattern is normal. No evidence of bowel obstruction. Surgical clips in the right upper quadrant most likely from cholecystectomy. No suspicious calcifications. Dextroscoliosis, lumbar spine. Osteitis condensans pubii. Chest shows no active cardiopulmonary disease. Mild cardiomegaly is present. Aorta is atherosclerotic and tortuous. RAD/Acute Abdomen Inc Chest IMPRESSION: Unremarkable abdomen series. No active cardiopulmonary disease. Cardiomegaly. Reading Location: [place] [id number]
[2024-11-06 17:36] LABS: Absolute Lymphocyte Count 0.95 X10^3/uL (0.83-4.51); Absolute Neutrophil Count 3.4 X10^3/uL (2.0-7.7); Basophil# 0.07 X10^3/uL; Basophil% 1.4 % (0-1); Eosinophil# 0.15 X10^3/uL; Eosinophils% 2.9 % (0-5); Hematocrit 34.1 % (37-47); Hemoglobin 10.8 g/dL (12.0-15.0); Lymphocyte # 0.95 X10^3/ul (0.83-4.51); Lymphocyte % 18.6 % (19-41); Mean Corp Hgb Conc 31.7 g/dL (32-36); Mean Corpuscular Hgb 29.9 pg (27.0-32.0); Mean Corpuscular Volume 94.5 fL (81-99); Mean Platelet Vol. 9.7 fl (6.2-12.0); Monocyte# 0.57 X10^3/uL; Monocyte% 11.1 % (0-10); NRBC Flagged by Analyzer 0 % (0-5); Neutrophil # 3.37 X10^3/uL (2.7-7.7); Neutrophil % 65.8 % (47-70); Platelet Count 244 K/mm3 (150-450); RBC Distribution Width CV 14.9 % (11.6-14.6); RBC Distribution Width SD 51.9 fl (35.1-43.9); Red Blood Count 3.61 M/mm3 (4.2-5.4); White Blood Count 5.1 K/mm3 (4.4-11.0)
[2024-11-06 19:11] LABS: ALB/GLOB Ratio 1.1 RATIO (0.9-2.4); AST(SGOT) 24 U/L (<=31); Alanine Aminotransfer ALT/SGPT 12 U/L (<=34); Albumin, Serum 3.9 g/dL (3.4-4.8); Alkaline Phosphatase 66 U/L (35-104); Anion Gap 13 (5-15); BUN 20 mg/dL (4-19); BUN/Creat Ratio 18.2 RATIO (10-20); Calcium 9.6 mg/dL (7.6-11.0); Carbon Dioxide 23.9 mmol/L (22.0-29.0); Chloride 101 mmol/L (96-108); Creatinine, Serum 1.07 mg/dL (0.70-1.20); EST Glomerular Filtration Rate 50 (>60); Globulin 3.7 g/dL (2.2-4.2); Glucose 107 mg/dL (70-99); Lipase 56 U/L (13-75); Potassium 4.2 mmol/L (3.3-5.1); Protein, Total 7.6 g/dL (5.9-8.4); Sodium Level 137 mmol/L (133-145); Total Bilirubin 0.33 mg/dL (0.00-1.30)
== END | disposition home or self-care (01) ==
LOC: MTLAB 14:05
PROVIDERS: PCP Family Medicine; Referring Provider Family Medicine; Visit Provider Family Medicine
DX: N39.0 Urinary tract infection, site not specified (principal)
CPT/HCPCS: 36415; 74022; 80053; 83690; 85025; 87086; 87088; 87186

== ENCOUNTER → 2024-12-12 | Outpatient (CLI) | payer MEDICARE, SELFPAY ==
--- NOTE | 2024-12-12 09:28 | RAD_ITS ---
PROCEDURE: ABDOMEN SINGLE VIEW 12/12/2024 REASON FOR EXAM: CONSTIPATION TECHNIQUE: Single view abdomen. Two views to include the entire abdomen and pelvis COMPARISON: 11/06/2024 FINDINGS: Gas and stool throughout the colon overall appears moderate. No gaseous distention of bowel. No evidence of mass effect. Status post cholecystectomy. Aortoiliac atherosclerotic calcifications. S shaped scoliosis with lower lumbar spondylosis. 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 RAD/Abdomen Single View IMPRESSION: Gas and stool throughout the colon overall appears moderate. No gaseous distent ion of bowel. No evidence of mass effect. Reading Location: [id number]
== END | disposition home or self-care (01) ==
LOC: MTRAD 09:28
PROVIDERS: PCP Family Medicine
DX: K59.00 Constipation, unspecified (principal)
CPT/HCPCS: 74018

== ENCOUNTER → 2024-12-17 | Outpatient (CLI) | payer MEDICARE, SELFPAY | END | disposition home or self-care (01) | PROVIDERS: PCP Family Medicine | DX: N39.0 Urinary tract infection, site not specified (principal) | CPT/HCPCS: 87077; 87086; 87088; 87186 ==

== ENCOUNTER → 2025-01-07 | Outpatient (CLI) | payer MEDICARE, SELFPAY | END | disposition home or self-care (01) | LOC: LABSPEC 11:12 | PROVIDERS: PCP Family Medicine; Visit Provider Physician Assistant | DX: R30.0 Dysuria (principal) | CPT/HCPCS: 87086; 87088; 87186 ==

== ENCOUNTER → 2025-03-27 | Outpatient (CLI) | payer MEDICARE, SELFPAY ==
[2025-03-27 12:12] LABS: Hematocrit 36.9 % (37-47); Hemoglobin 11.8 g/dL (12.0-15.0); Immature Granulocytes Count 0.010 X10^3/uL (0.0-0.0); Mean Corp Hgb Conc 32.0 g/dL (32-36); Mean Corpuscular Volume 90.2 fL (81-99); Mean Platelet Vol. 9.1 fl (6.2-12.0); NRBC Flagged by Analyzer 0 % (0-5); Platelet Count 232 K/mm3 (150-450); RBC Distribution Width CV 17.5 % (11.6-14.6); RBC Distribution Width SD 58.3 fl (35.1-43.9); Red Blood Count 4.09 M/mm3 (4.2-5.4); White Blood Count 6.4 K/mm3 (4.4-11.0)
[2025-03-27 12:46] LABS: PTHIN 23 pg/mL (11-61)
[2025-03-27 12:47] LABS: Creatinine, Urine (random) 69.40 mg/dL (28.00-217.00); Protein, Urine (Random) 30.4 mg/dL (0.0-12.0); Protein:Creat Ratio 438 mg/g CRE (0-200)
[2025-03-27 13:17] LABS: AST(SGOT) 26 U/L (<=31); Alanine Aminotransfer ALT/SGPT 13 U/L (<=34); Albumin, Serum 3.9 g/dL (3.4-4.8); Alkaline Phosphatase 78 U/L (35-104); Anion Gap 12 (5-15); BUN 25 mg/dL (4-19); BUN/Creat Ratio 21.5 RATIO (10-20); Calcium,Total 10.1 mg/dL (7.6-11.0); Carbon Dioxide 25.3 mmol/L (21.0-32.0); Chloride 102 mmol/L (98-108); Cholesterol 126 mg/dL (<=200); Globulin 4.0 g/dL (2.2-4.2); Glucose 91 mg/dL (70-99); Low Density Lipoprotein Calc. 44 mg/dL; Magnesium 1.9 mg/dL (1.5-2.2); Potassium 4.3 mmol/L (3.3-5.1); Triglycerides 61 mg/dL; Very Low Density Lipoprotein 12 mg/dL (5-40); Vitamin D,25 Hydroxy 56.6 ng/mL (30-100); cholesterol:hdl ratio screen 1.81
== END | disposition home or self-care (01) ==
LOC: MFPLAB 10:26
PROVIDERS: PCP Family Medicine; Referring Provider Family Medicine; Visit Provider Family Medicine
DX: I48.91 Unspecified atrial fibrillation (principal); N18.30 Chronic kidney disease, stage 3 unspecified; I12.9 Hypertensive chronic kidney disease with stage 1 through stage 4 chronic kidney disease, or unspecified chronic kidney disease
CPT/HCPCS: 36415; 80053; 80061; 82306; 82570; 83735; 83970; 84156; 84443; 85025

== ENCOUNTER → 2025-04-14 | Outpatient (CLI) | payer MEDICARE, SELFPAY | END | disposition home or self-care (01) | LOC: LABSPEC 11:30 | PROVIDERS: PCP Family Medicine; Visit Provider Physician Assistant | DX: R30.0 Dysuria (principal) | CPT/HCPCS: 87077; 87086; 87088; 87186 ==

== ENCOUNTER → 2025-05-23 | Outpatient (CLI) | payer MEDICARE, SELFPAY | END | disposition home or self-care (01) | PROVIDERS: PCP Family Medicine; Referring Provider Nurse Practitioner Family; Visit Provider Nurse Practitioner Family | DX: R30.0 Dysuria (principal) | CPT/HCPCS: 87077; 87086; 87088; 87186 ==

== ENCOUNTER → 2025-06-05 | Outpatient (CLI) | payer MEDICARE, SELFPAY | END | disposition home or self-care (01) | PROVIDERS: PCP Family Medicine; Referring Provider Physician Assistant Surgical; Visit Provider Physician Assistant Surgical | DX: R30.0 Dysuria (principal) | CPT/HCPCS: 87077; 87086; 87088; 87186 ==

== ENCOUNTER → 2025-09-01 | Outpatient (CLI) | payer MEDICARE, SELFPAY ==
--- NOTE | 2025-09-01 16:58 | RAD_ITS ---
PROCEDURE: RIGHT HIP UNI 4+ VIEWS WITH PELVIS 09/01/2025 REASON FOR EXAM: FALL TECHNIQUE: Procedure Code: [id number] Modality: DX Procedure: HIP UNI 4+ VIEWS WITH PELVIS COMPARISON: None. FINDINGS: Likely acute nondisplaced fractures of the right pubic rami. No other acute fracture or dislocation appreciated. Bilateral hip joints are intact with moderate degenerative arthrosis. Degenerative changes of the lower lumbosacral spine. Grossly unremarkable soft tissues. RAD/Hip uni 4+ views with Pelvis IMPRESSION: 1. Nondisplaced fractures of the right pubic rami, likely acute. 2. Moderate bilateral hip arthrosis. Reading Location: [id number]
== END | disposition home or self-care (01) ==
LOC: MTRAD 16:58
PROVIDERS: PCP Family Medicine; Referring Provider Physician Assistant; Visit Provider Physician Assistant
DX: M25.551 Pain in right hip (principal)
CPT/HCPCS: 73503